=== PATIENT | male | born 1955 | race Caucasian/White ===

== ENCOUNTER 2019-01-21 11:30 | Inpatient (IN) | payer SELFPAY ==
[~2019-01-21] VITALS: Ht 167.6 cm; Wt 75.3 kg
[2019-01-21] MEDS ORDERED: SODIUM CHLORIDE 0.9% 1L BAG IV* STA (12:15)
[2019-01-21] MEDS ORDERED: ACETAMINOPHEN 325 MG TAB PO STA (12:15)
[2019-01-21] MEDS ORDERED: CEFEPIME 2GM/50 ML (PMX) 50 ML IVPB STA (12:15)
[2019-01-21] MEDS ORDERED: VANCOMYCIN 1 GM (PMX) 250 ML IVPB ONE (12:30)
[2019-01-21] MEDS ORDERED: METF100010 PO (13:23)
[2019-01-21] MEDS ORDERED: CLON0.2T5 PO (13:23)
[2019-01-21] MEDS ORDERED: ALBUTEROL 0.083% (NEB) 2.5 MG/3 ML AMP NEB STA (15:08)
[2019-01-21] MEDS ORDERED: IPRATROPIUM (NEB) 0.5 MG/2.5 ML AMP NEB STA (15:08)
--- NOTE | 2019-01-21 15:58 | ERD ---
ER Documentation Chief Complaint Chief Complaint cough with intermittent fever x 1 wk HPI Very pleasant 63-year-old gentleman who presents to the emergency room complaining of cough and fever for approximately 1 week. The patient has been treated with amoxicillin by his primary care physician but over the last 6 days the patient has had worsening cough that is productive with associated shortness of breath. He denies any headache. No chest pressure no exertional symptoms. ROS All systems reviewed and are negative except as per history of present illness. Medications Home Meds Reported Medications Clonidine Hcl* (Clonidine Hcl*) 0.2 Mg Tablet, 0.2 MG PO TID PRN for ELEVATED BLOOD PRESSURE, TAB 01/21/19 Metformin Hcl* (Metformin Hcl*) 1,000 Mg Tablet, 1000 MG PO WITH BREAKFAST DINNE, #60 TAB 01/21/19 Allergies Allergies: Coded Allergies: No Known Allergy (Verified , 01/21/19) PMhx/Soc History of Surgery: No Anesthesia Reaction: No Hx Neurological Disorder: No Hx Respiratory Disorders: No Hx Psychiatric Problems: No Hx Miscellaneous Medical Probl: No (TYPE 2 DM ) Hx Alcohol Use: No Hx Substance Use: No Hx Tobacco Use: No Smoking Status: Never smoker FmHx Family History: No diabetes Physical Exam Vitals Vital Signs Date Temp Pulse Resp B/P (MAP) Pulse Ox O2 O2 Flow FiO2 Time Delivery Rate 01/21/19 74 21 156/89 100 15:25 (111) 01/21/19 62 23 98 Nasal 2.0 15:13 Cannula 01/21/19 101.0 12:47 01/21/19 Nasal 2 12:23 Cannula 01/21/19 Nasal 2.0 12:23 Cannula 01/21/19 99.3 85 18 172/85 96 11:34 (114) Physical Exam General: Well developed, well nourished, no acute distress Head: Normocephalic, atraumatic. Eyes: Pupils equally reactive, EOM intact ENT: Moist mucous membranes Neck: Supple, no lymphadenopathy Respiratory: Scattered rhonchi at the bases, no distress Cardiovascular: RRR, no murmurs, rubs, or gallops Abdominal: Soft, non-tender, non-distended, no peritoneal signs : Deferred MSK: No edema, no unilateral swelling, 5/5 strength Neurologic: Alert and oriented, moving all extremities, normal speech, no focal weakness, no cerebellar signs Skin: No rash Psych: Normal mood Result Diagram: 01/21/19 1221 01/21/19 1221 Results 24 hrs Laboratory Tests Test 01/21/19 12:19 01/21/19 12:21 01/21/19 14:13 01/21/19 15:00 POC Venous 1.1 mmol/L Lactate White Blood Count 16.1 10^3/ul Red Blood Count 5.50 10^6/ul Hemoglobin 14.2 g/dl Hematocrit 44.3 % Mean Corpuscular 80.5 fl Volume Mean Corpuscular 25.8 pg Hemoglobin Mean Corpuscular 32.1 g/dl Hemoglobin Concen t Red Cell 13.1 % Distribution Width Platelet Count 345 10^3/UL Mean Platelet 9.7 fl Volume Immature 0.500 % Granulocytes % Neutrophils % 88.9 % Lymphocytes % 6.3 % Monocytes % 3.4 % Eosinophils % 0.6 % Basophils % 0.3 % Nucleated Red 0.0 /100WBC Blood Cells % Immature 0.080 10^3/ul Granulocytes # Neutrophils # 14.3 10^3/ul Lymphocytes # 1.0 10^3/ul Monocytes # 0.6 10^3/ul Eosinophils # 0.1 10^3/ul Basophils # 0.1 10^3/ul Nucleated Red 0.0 10^3/ul Blood Cells # Prothrombin Time 13.4 Sec Prothrombin Time 1.0 Ratio INR International 1.01 Normalized Ratio Activated 27.9 Sec Partial Thrombopl ast Time Sodium Level 136 mmol/L Potassium Level 4.1 mmol/L Chloride Level 99 mmol/L Carbon Dioxide 29 mmol/L Level Anion Gap 8 Blood Urea 16 mg/dl Nitrogen Creatinine 1.40 mg/dl Est Glomerular 51 mL/min Filtrat Rate mL/min Glucose Level 218 mg/dl Calcium Level 8.9 mg/dl Total Bilirubin 0.6 mg/dl Direct Bilirubin 0.00 mg/dl Indirect 0.6 mg/dl Bilirubin Aspartate Amino 19 IU/L Transf (AST/SGOT) Alanine 22 IU/L Aminotransferase (ALT/SGPT) Alkaline 53 IU/L Phosphatase Troponin I < 0.012 ng/ml Total Protein 6.0 g/dl Albumin 3.2 g/dl Globulin 2.80 g/dl Albumin/Globulin 1.14 Ratio Urine Color YELLOW Urine Clarity CLEAR Urine pH 6.0 Urine Specific 1.017 [place] Urine Ketones NEGATIVE mg/dL Urine Nitrite NEGATIVE mg/dL Urine Bilirubin NEGATIVE mg/dL Urine NEGATIVE mg/dL Urobilinogen Urine Leukocyte NEGATIVE Nurys/ul Esterase Urine Hemoglobin NEGATIVE mg/dL Urine Glucose NEGATIVE mg/dL Urine Total NEGATIVE mg/dl Protein Lactic Acid Level 0.9 mmol/L Current Medications Medications Dose Sig/[place] Start Time Status Last (Trade) Ordered Route PRN Stop Time Admin Dose Reason Admin Sodium 2,150 ml BOLUS OVER 2 01/21/19 DC 01/21/19 Chloride HOURS STAT 12:15 12:46 (NS) IV* 01/21/19 12:16 650 mg ONCE STAT 01/21/19 DC 01/21/19 Acetaminophen PO 12:15 12:47 (Tylenol 01/21/19 12:16 Tab) Cefepime HCl 50 ml @ ONCE STAT 01/21/19 DC 01/21/19 100 mls/hr IVPB 12:15 14:49 01/21/19 12:44 Vancomycin 250 ml @ ONCE ONCE 01/21/19 DC 01/21/19 HCl 125 mls/hr IVPB 12:30 12:46 01/21/19 14:29 Albuterol 2.5 mg ONCE STAT 01/21/19 DC 01/21/19 (Proventil NEB 15:08 15:13 0.083% (Neb)) 01/21/19 15:09 Ipratropium 0.5 mg ONCE STAT 01/21/19 DC 01/21/19 [place] NEB 15:08 15:13 (Atrovent 01/21/19 15:09 0.02% (Neb)) Procedures/MDM EKG, MONITORS, & DIAGNOSTIC IMAGING: EKG: I reviewed and interpreted a 12-lead EKG. Rhythm: Normal sinus rhythm ST Changes: No contiguous ST segment elevations T waves: No contiguous T wave inversions Impression: No evidence of acute cardiac ischemia CXR IMPRESSION: 1. Mild diffuse bilateral interstitial opacities, could represent an atypical infectious or inflammatory process in the acute clinical setting. Recommend short term follow-up radiographic imaging to document complete resolution. LAB INTERPRETATION: I reviewed the laboratory testing and it shows leukocytosis with normal lactic acid MEDICAL DECISION MAKING: Patient presents with cough and congestion despite the use of amoxicillin on an outpatient basis. His clinical exam and history and presentation are likely consistent with community acquired pneumonia. I think issue with the administration of amoxicillin in this patient for treatment of community acquired pneumonia. It does not seem to be appropriate coverage for this patient's age group. Therefore I am not convinced that this is treatment failure but the patient does have borderline oxygen saturation. Patient does have Sirs criteria with concern for pneumonia. Code sepsis initiated. ER COURSE: * Appropriate fluid, blood cultures and antibiotics provided. * Patient was given a breathing treatment * Patient continues to be extremely well-appearing in the emergency room setting however his oxygen saturation on room air remains between 8892%. I am concerned based on this finding that the patient warrants further observation and inpatient basis. He is agreeable. CONSULTATION: None DISPOSITION PLAN: Accepting care team and consultations: I discussed the current laboratory data, diagnostic imaging and emergency care provided. Admitting team: Dr. Adam Admitting team indication: Insurance directed Sepsis Documentation: Patient's infectious symptoms have not stabilized and the patient is at risk of rapid decompensation. The patient will be admitted for careful hydration, antibiotic therapy, and infectious source control. SEVERE SEPSIS CRITERIA: Infectious source: Community-acquired pneumonia End organ damage indicated by: Acute Resp Failure (sat < 92% w/o oxygen) SEPSIS MANAGEMENT Time of recognition of sepsis: Upon MD assessment. Time of recognition of severe sepsis: Approximately 12:23 PM Time of recognition of septic shock: No septic shock at this time. 3 HOUR BUNDLE Blood cultures x 2 before broad-spectrum antibiotics: Yes 30 ml/kg NS bolus completed Initial lactate less than 2 Repeat lactate less than 2 SEPTIC SHOCK ASSESSMENT: No lactic acid > 4.0 No persistent hypotension (SBP < 90 or 40 mmHg drop, MAP < 65) despite 30 mL/kg IV fluid bolus VOLUME REASSESSMENT FOR SEPTIC SHOCK: The patient does not meet criteria for septic shock in the emergency department at this time PERSISTENT HYPOTENSION TREATMENT: Comfort care no Central line not Required Vasopressor started not required I considered further perfusion assessment with CVP measurement, SCVO2, bedside ultrasound volume assessment, passive leg raise, trial of further fluid bolus. And proceeded with 30 ml/kg fluid bolus of NSS, broad spectrum antibiotics, and admission. CRITICAL CARE Critical care time 35 minutes Emergent fluid management while maintaining close respiratory support. Provision of immediate and broad-spectrum antibiotic therapy. Simultaneous assessment for possible sources in order to direct targeted therapy. Consideration for invasive and chemical support to prevent cardiopulmonary collapse. Critical care time is independent of procedures performed. Departure Diagnosis: Primary Impression: Community acquired pneumonia Laterality: unspecified laterality Qualified Codes: J18.9 - Pneumonia, un specified organism Additional Impressions: Severe sepsis Acute renal insufficiency Condition: Stable LARA GRIGSBY MD January 21, 2019 15:57
[2019-01-21] MEDS ORDERED: ACETAMINOPHEN 325 MG TAB PO PRN (16:30)
[2019-01-21] MEDS ORDERED: ONDANSETRON 4 MG INJ IV PRN (16:30)
[2019-01-21] MEDS ORDERED: AZITHROMYCIN 250 MG TAB PO ONE (18:00)
[2019-01-21] MEDS ORDERED: VANCOMYCIN IV PER PHARMACY XX SCH (18:00)
[2019-01-21] MEDS ORDERED: HYDROCODONE/APAP (5/325) TAB PO PRN (18:00)
[2019-01-21] MEDS ORDERED: NACL 0.9% 3 ML SYG IV SCH (18:00)
--- NOTE | 2019-01-21 18:42 | HP ---
Date/Time of Note Date/Time of Note DATE: 01/21/19 TIME: 18:33 Assessment/Plan VTE Prophylaxis Pharmacological prophylaxis: heparin Lines/Catheters IV [facility]from [facility] Saline Lock Assessment/Plan Hospital Course This is a 63-year-old male with a history of diabetes and hypertension with who presents with 6 weeks of resolving pneumonia. Found to have fever mild hypoxia and diffuse interstitial infiltrates Picture is concerning for an atypical pneumonia pattern perhaps a fungal pneumonia. Bacterial lobar pneumonia is less likely but certainly possible -We will treat with broad-spectrum antibiotics for now. Low threshold to stop if no improvement -We will test for coccidial mycosis, legionella, mycoplasma - CT chest pending - O2 as needed - ID consultation DMII: - basal/bolus Hypertension: home meds dc Result Diagram: 01/21/19 1221 01/21/19 1221 Results 24hrs Laboratory Tests Test 01/21/19 12:19 01/21/19 12:21 01/21/19 14:13 01/21/19 15:00 POC Venous Lactate 1.1 White Blood Count 16.1 H Red Blood Count 5.50 Hemoglobin 14.2 Hematocrit 44.3 Mean Corpuscular 80.5 L Volume Mean Corpuscular 25.8 L Hemoglobin Mean Corpuscular 32.1 Hemoglobin Concent Red Cell 13.1 Distribution Width Platelet Count 345 Mean Platelet Volume 9.7 Immature 0.500 H Granulocytes % Neutrophils % 88.9 H Lymphocytes % 6.3 L Monocytes % 3.4 Eosinophils % 0.6 Basophils % 0.3 Nucleated Red Blood 0.0 Cells % Immature 0.080 H Granulocytes # Neutrophils # 14.3 H Lymphocytes # 1.0 Monocytes # 0.6 Eosinophils # 0.1 Basophils # 0.1 Nucleated Red Blood 0.0 Cells # Prothrombin Time 13.4 Prothrombin Time 1.0 Ratio INR International 1.01 Normalized Ratio Activated 27.9 Partial Thromboplast Time Sodium Level 136 Potassium Level 4.1 Chloride Level 99 Carbon Dioxide Level 29 Anion Gap 8 Blood Urea Nitrogen 16 Creatinine 1.40 H Est Glomerular 51 L Filtrat Rate mL/min Glucose Level 218 Calcium Level 8.9 Total Bilirubin 0.6 Direct Bilirubin 0.00 Indirect Bilirubin 0.6 Aspartate Amino 19 Transf (AST/SGOT) Alanine 22 Aminotransferase (AL T/SGPT) Alkaline Phosphatase 53 Troponin I < 0.012 Total Protein 6.0 L Albumin 3.2 L Globulin 2.80 Albumin/Globulin 1.14 Ratio Urine Color YELLOW Urine Clarity CLEAR Urine pH 6.0 Urine Specific 1.017 [place] Urine Ketones NEGATIVE Urine Nitrite NEGATIVE Urine Bilirubin NEGATIVE Urine Urobilinogen NEGATIVE Urine Leukocyte NEGATIVE Esterase Urine Hemoglobin NEGATIVE Urine Glucose NEGATIVE Urine Total Protein NEGATIVE Lactic Acid Level 0.9 HPI/ROS Admit Date/Time Admit Date/Time Hx of Present Illness This is a 63-year-old male with a history of diabetes and hypertension who presents with cough and shortness of breath and fever Patient has had respiratory symptoms for about a month and a half. He has had bothersome dry cough as well as shortness of breath. He has had daily fevers to 101 measured at home. She is primary care doctor has given him a course of amoxicillin which has not helped he also gave him an intramuscular injection which sounds like it was Rocephin. Also this did not improve his symptoms. His fevers and shortness of breath symptoms have worsened over the past few days so he sought care in the emergency room here today. He also reports frequent night sweats. No weight loss here found to be febrile mildly hypoxic with diffuse interstitial infiltrates on chest x-ray He appears well and comfortable rest He denies any major recent travel. He last left the [place] area about a year ago. 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 His was sick briefly with an upper respiratory infection a month ago but nothing similar to what he has now. No other sick contacts ROS Constitutional: no complaints, improved Eyes: no complaints ENT: no complaints Respiratory: no complaints Cardiovascular: no complaints Gastrointestinal: no complaints Genitourinary: no complaints Musculoskeletal: no complaints Skin: no complaints Neurologic: no complaints Endocrine: no complaints Lymphatic: no complaints Psychological: no complaints, nl mood/affect Immunologic: no complaints PMH/Family/Social Past Medical History Medical History: diabetes, hypertension Medications Current Medications Ondansetron HCl (Zofran Inj) 4 mg BRIDGE ORDER PRN IV NAUSEA/VOMITING; Start 01/21/19 at 16:30; Stop 01/22/19 at 16:29 Acetaminophen (Tylenol Tab) 650 mg ER BRIDGE PRN PO .MILD PAIN 1-3 OR TEMP; Start 01/21/19 at 16:30; Stop 01/22/19 at 16:29 IV Flush (NS 3 ml) 3 ml PER PROTOCOL IV ; Start 01/21/19 at 18:00 Acetaminophen/ Hydrocodone Bitart ([place] (5/325)) 1 tab Q6H PRN PO .MOD PAIN 4- 6; Start 01/21/19 at 18:00 Heparin Sodium (Porcine) (Heparin (5000 Units/1ml)) 5,000 unit Q12 SC ; Start 01/21/19 at 21:00 Vancomycin HCl (Vanco Iv Per Pharmacy) VANCOMYCIN PER PHARMACY PER PROTOCOL XX ; Start 01/21/19 at 18:00; Status UNV Cefepime HCl 50 ml @ 100 mls/hr Q12 IVPB ; Start 01/21/19 at 21:00 Azithromycin (Zithromax) 250 mg DAILY PO ; Start 01/22/19 at 09:00 Coded Allergies: No Known Allergy (Verified , 01/21/19) Past Surgical History Past Surgical Hx: no surgical history Family History Significant Family History: no pertinent family hx Social History Alcohol Use: none Smoking Status: Never smoker Drug Use: none Exam/Review of Systems Vital Signs Vitals Vital Signs Date Temp Pulse Resp B/P (MAP) Pulse Ox O2 O2 Flow FiO2 Time Delivery Rate 01/21/19 74 21 156/89 100 15:25 (111) 01/21/19 Nasal 2.0 15:13 Cannula 01/21/19 101.0 12:47 Exam Constitutional: alert, oriented, well developed Psych: no complaints, nl mood/affect Head: normocephalic, atraumatic Eyes: nl conjunctiva, EOMI, nl lids, nl sclera, PERRL ENMT: nl external ears & nose, nl lips & teeth, nl nasal mucosa & septum Neck: supple, non-tender Respiratory: clear to auscultation, normal air movement Cardiovascular: regular rate and rhythm, nl pulses Gastrointestinal: soft, nl liver, spleen, non-tender Musculoskeletal: nl extremities to inspection Extremities: normal pulses Neurological: SCREEN CLEANER II-XII intact, nl mental status, nl speech, nl strength Skin: nl turgor; No rash or lesions Lymph: nl lymph nodes GLADYS LUNA MD January 21, 2019 18:42
[2019-01-21] MEDS ORDERED: DEXTROSE 50% 50 ML SYRINGE IV PRN ×2 (20:30)
[2019-01-21] MEDS ORDERED: GLUCOSE GEL 15 GRAM TUBE PO PRN ×2 (20:30)
[2019-01-21] MEDS ORDERED: GLUCOSE GEL 15 GRAM TUBE BUCCAL PRN (20:30)
[2019-01-21] MEDS ORDERED: GLUCAGON 1 MG INJ IM PRN (20:30)
[2019-01-21 20:32] VITALS: BP 160/89; PULSE 68; RESP 16
[2019-01-21 20:51] VITALS: Ht 167.6 cm; Wt 75.3 kg
[2019-01-21] MEDS: ACCU-CHEK XX SCH (20:58)
[2019-01-21] MEDS: INSULIN ASPART [NOVOLOG] 3 ML PEN SC SCH (21:00)
[2019-01-21 22:00] VITALS: BP 155/71
[2019-01-21] MEDS: CEFEPIME 1GM/50 ML (PMX) 50 ML IVPB SCH (22:21)
[2019-01-21] MEDS: HEPARIN 5,000 UNIT/1 ML VIAL SC SCH (22:31)
[2019-01-21] MEDS: INSULIN GLARGINE [LANTus] (100 UNITS/ML) SYG SC SCH (22:51)
[2019-01-22 02:28] VITALS: BP 177/99; PULSE 80; RESP 16
[2019-01-22 06:03] VITALS: BP 171/100
[2019-01-22] MEDS: hydrALAzine 20 MG INJ IV PRN (06:21)
[2019-01-22 07:15] VITALS: BP 159/84; PULSE 85; RESP 20
[2019-01-22] MEDS: ACCU-CHEK XX SCH ×4 (07:30→21:00)
[2019-01-22] MEDS ORDERED: metFORMIN 500 MG TAB PO SCH (08:00)
[2019-01-22] MEDS: INSULIN ASPART [NOVOLOG] 3 ML PEN SC SCH ×7 (08:33→21:10)
[2019-01-22] MEDS: CEFEPIME 1GM/50 ML (PMX) 50 ML IVPB SCH ×2 (08:36→21:03)
[2019-01-22] MEDS: HEPARIN 5,000 UNIT/1 ML VIAL SC SCH ×2 (08:38→21:09)
[2019-01-22] MEDS ORDERED: AZITHROMYCIN 250 MG TAB PO SCH (09:00)
[2019-01-22] MEDS ORDERED: VANCOMYCIN HCL 1.25 GM in SOD CHLORIDE 0.9% 250 ML IVPB SCH (09:00)
--- NOTE | 2019-01-22 09:36 | CONS ---
Assessment/Plan Assessment/Plan Hospital Course (Demo Recall) 1) alveolar/interstitial pneumonitis CT chest does not show nodules or cavities, this is not a typical pattern for [place] fever continue with cefepime, change vanco/azithro to doxycycline to cover MRSA and atypicals procalcitonin is pending, repeat in a.m. check ESR, AMBREEN, ANCA get viral respiratory panel of nares get nasal for MRSA check quant TB gold in a.m. if pt does not improve in the next few days and lab tests are not revelatory then he will likely need bronch with lung bx 2) DM pt states these have been good and his HgbA1C is around 6 3) HTN Consultation Date/Type/Reason Admit Date/Time Date of Consultation: January 22, 2019 Type of Consult ID Date/Time of Note DATE: 01/22/19 TIME: 09:28 Hx of Present Illness pt reports that he has been unwell for 4-6 weeks with cough, non productive and initially low grade fevers he initially had sore throat and muscle aches/joint pains which have resolved in the last week the fevers got worse and went to urgent care and got amoxicillin which did not help no N, V his appetite has decreased in the last week he was [place] and it was windy He has had diarrhea but he states he tends to have loose stools no abd pain, dysuria, rashes He had some CP with coughing but this has improved no joint swelling his has similar but milder symptoms Past Medical History Medical History: diabetes, hypertension Home Meds Reported Medications Clonidine Hcl* (Clonidine Hcl*) 0.2 Mg Tablet, 0.2 MG PO TID PRN for ELEVATED BLOOD PRESSURE, TAB 01/21/19 Discontinued Reported Medications Metformin Hcl* (Metformin Hcl*) 1,000 Mg Tablet, 1000 MG PO WITH BREAKFAST DINNE, #60 TAB 01/21/19 Medications Current Medications Ondansetron HCl (Zofran Inj) 4 mg BRIDGE ORDER PRN IV NAUSEA/VOMITING; Start 01/21/19 at 16:30; Stop 01/22/19 at 16:29 Acetaminophen (Tylenol Tab) 650 mg ER BRIDGE PRN PO .MILD PAIN 1-3 OR TEMP; Start 01/21/19 at 16:30; Stop 01/22/19 at 16:29 IV Flush (NS 3 ml) 3 ml PER PROTOCOL IV ; Start 01/21/19 at 18:00 Acetaminophen/ Hydrocodone Bitart ([place] (5/325)) 1 tab Q6H PRN PO .MOD PAIN 4- 6; Start 01/21/19 at 18:00 Heparin Sodium (Porcine) (Heparin (5000 Units/1ml)) 5,000 unit Q12 SC Last administered on 01/22/19 08:38; Admin Dose 5,000 UNIT; Start 01/21/19 at 21:00 Vancomycin HCl (Vanco Iv Per Pharmacy) VANCOMYCIN PER PHARMACY PER PROTOCOL XX ; Start 01/21/19 at 18:00 Cefepime HCl 50 ml @ 100 mls/hr Q12 IVPB Last administered on 01/22/19 08:36; Admin Dose 100 MLS/HR; Start 01/21/19 at 21:00 Azithromycin (Zithromax) 250 mg DAILY PO ; Start 01/22/19 at 09:00 Clonidine (Catapres) 0.2 mg TID PRN PO SBP ABOVE 180..... Last administered on 01/22/19at 02:08; Admin Dose 0.2 MG; Start 01/21/19 at 19:30 Diagnostic Test (Pha) (Accu-Chek) 1 ea AC MEALS AND BEDTIME XX Last administered on 01/22/19 07:30; Admin Dose 1 EA; Start 01/21/19 at 21:00 Insulin Glargine (Lantus) 11 units DAILY@2000 SC Last administered on 01/21/19 22:51; Admin Dose 11 UNITS; Start 01/21/19 at 20:00 Insulin Aspart (Novolog Insulin Pen) 4 unit WITH MEALS SC Last administered on 01/22/19 08:33; Admin Dose 4 UNIT; Start 01/22/19 at 07:35 Insulin Aspart (Novolog Insulin Pen) NOVOLOG *MILD* ALGORITHM WITH MEALS BEDTIME SC Last administered on 01/22/19 08:35; Admin Dose 1 UNIT; Start 01/21/19 at 21:00 Miscellaneous Information 1 ea NOTE XX ; Start 01/21/19 at 20:30 Glucose (Glutose) 15 gm Q15M PRN PO DECREASED GLUCOSE; Start 01/21/19 at 20:30 Glucose (Glutose) 22.5 gm Q15M PRN PO DECREASED GLUCOSE; Start 01/21/19 at 20:30 Dextrose (D50w Syringe) 25 ml Q15M PRN IV DECREASED GLUCOSE; Start 01/21/19 at 20:30 Dextrose (D50w Syringe) 50 ml Q15M PRN IV DECREASED GLUCOSE; Start 01/21/19 at 20:30 Glucagon (Glucagen) 1 mg Q15M PRN IM DECREASED GLUCOSE; Start 01/21/19 at 20:30 Glucose (Glutose) 15 gm Q15M PRN BUCCAL DECREASED GLUCOSE; Start 01/21/19 at 20:30 Vancomycin HCl 1.25 gm/Sodium Chloride 250 ml @ 83.333 mls/ hr Q24H IVPB ; Start 01/22/19 at 09:00 Hydralazine HCl (Apresoline) 10 mg Q4H PRN IV ELEVATED BLOOD PRESSURE Last administered on 01/22/19at 06:21; Admin Dose 10 MG; Start 01/22/19 at 06:30 Allergies: Coded Allergies: No Known Allergy (Verified , 01/21/19) Past Surgical History hernia repairs Social History Alcohol Use: none Smoking Status: Never smoker Drug Use: none Exam/Review of Systems Exam Vitals Vital Signs Date Temp Pulse Resp B/P (MAP) Pulse Ox O2 O2 Flow FiO2 Time Delivery Rate 01/22/19 98.4 85 20 159/84 93 Nasal 07:15 (109) Cannula 01/21/19 2.0 21:00 Intake and Output 01/21/19 01/21/19 01/22/19 1515:00 23:00 07:00 IntakeIntake Total 2550 ml BalanceBalance 2550 ml Constitutional: alert, oriented Eyes: nl sclera ENMT: mucosa pink and moist Respiratory: other (bibasilar rales and pt coughs easily, non productive) Cardiovascular: regular rate and rhythm Gastrointestinal: soft, non-tender Extremities: other (no swelling or rashes noted) Neurological: other (non focal) Results Result Diagram: 01/22/19 0705 01/21/19 1221 Results 24hrs Laboratory Tests Test 01/21/19 12:19 01/21/19 12:21 01/21/19 14:13 01/21/19 15:00 POC Venous Lactate 1.1 White Blood Count 16.1 H Red Blood Count 5.50 Hemoglobin 14.2 Hematocrit 44.3 Mean Corpuscular 80.5 L Volume Mean Corpuscular 25.8 L Hemoglobin Mean Corpuscular 32.1 Hemoglobin Concent Red Cell 13.1 Distribution Width Platelet Count 345 Mean Platelet Volume 9.7 Immature 0.500 H Granulocytes % Neutrophils % 88.9 H Lymphocytes % 6.3 L Monocytes % 3.4 Eosinophils % 0.6 Basophils % 0.3 Nucleated Red Blood 0.0 Cells % Immature 0.080 H Granulocytes # Neutrophils # 14.3 H Lymphocytes # 1.0 Monocytes # 0.6 Eosinophils # 0.1 Basophils # 0.1 Nucleated Red Blood 0.0 Cells # Prothrombin Time 13.4 Prothrombin Time 1.0 Ratio INR International 1.01 Normalized Ratio Activated 27.9 Partial Thromboplast Time Sodium Level 136 Potassium Level 4.1 Chloride Level 99 Carbon Dioxide Level 29 Anion Gap 8 Blood Urea Nitrogen 16 Creatinine 1.40 H Est Glomerular 51 L Filtrat Rate mL/min Glucose Level 218 Calcium Level 8.9 Total Bilirubin 0.6 Direct Bilirubin 0.00 Indirect Bilirubin 0.6 Aspartate Amino 19 Transf (AST/SGOT) Alanine 22 Aminotransferase (AL T/SGPT) Alkaline Phosphatase 53 Troponin I < 0.012 Total Protein 6.0 L Albumin 3.2 L Globulin 2.80 Albumin/Globulin 1.14 Ratio Urine Color YELLOW Urine Clarity CLEAR Urine pH 6.0 Urine Specific 1.017 [place] Urine Ketones NEGATIVE Urine Nitrite NEGATIVE Urine Bilirubin NEGATIVE Urine Urobilinogen NEGATIVE Urine Leukocyte NEGATIVE Esterase Urine Hemoglobin NEGATIVE Urine Glucose NEGATIVE Urine Total Protein NEGATIVE Lactic Acid Level 0.9 Test 01/21/19 22:44 01/22/19 07:05 01/22/19 08:06 Bedside Glucose 128 143 White Blood Count 11.3 #H Red Blood Count 5.61 Hemoglobin 14.5 Hematocrit 45.4 Mean Corpuscular 80.9 L Volume Mean Corpuscular 25.8 L Hemoglobin Mean Corpuscular 31.9 L Hemoglobin Concent Red Cell 13.2 Distribution Width Platelet Count 341 Mean Platelet Volume 9.8 Immature 0.600 H Granulocytes % Neutrophils % 83.7 H Lymphocytes % 9.7 L Monocytes % 4.6 Eosinophils % 1.0 Basophils % 0.4 Nucleated Red Blood 0.0 Cells % Immature 0.070 H Granulocytes # Neutrophils # 9.5 H Lymphocytes # 1.1 Monocytes # 0.5 Eosinophils # 0.1 Basophils # 0.0 Nucleated Red Blood 0.0 Cells # Sodium Level 139 Potassium Level 4.0 Chloride Level 105 Carbon Dioxide Level 24 Anion Gap 10 Blood Urea Nitrogen 14 Creatinine 1.26 H Est Glomerular 58 L Filtrat Rate mL/min Glucose Level 141 # Hemoglobin A1c 7.6 H Calcium Level 8.7 Total Bilirubin 0.7 Direct Bilirubin 0.00 Indirect Bilirubin 0.7 Aspartate Amino 20 Transf (AST/SGOT) Alanine 23 Aminotransferase (AL T/SGPT) Alkaline Phosphatase 58 Total Protein 6.3 Albumin 3.3 Globulin 3.00 Albumin/Globulin 1.10 Ratio Medications Medication Current Medications Ondansetron HCl (Zofran Inj) 4 mg BRIDGE ORDER PRN IV NAUSEA/VOMITING; Start 01/21/19 at 16:30; Stop 01/22/19 at 16:29 Acetaminophen (Tylenol Tab) 650 mg ER BRIDGE PRN PO .MILD PAIN 1-3 OR TEMP; Start 01/21/19 at 16:30; Stop 01/22/19 at 16:29 IV Flush (NS 3 ml) 3 ml PER PROTOCOL IV ; Start 01/21/19 at 18:00 Acetaminophen/ Hydrocodone Bitart ([place] (5/325)) 1 tab Q6H PRN PO .MOD PAIN 4- 6; Start 01/21/19 at 18:00 Heparin Sodium (Porcine) (Heparin (5000 Units/1ml)) 5,000 unit Q12 SC Last administered on 01/22/19at 08:38; Admin Dose 5,000 UNIT; Start 01/21/19 at 21:00 Vancomycin HCl (Vanco Iv Per Pharmacy) VANCOMYCIN PER PHARMACY PER PROTOCOL XX ; Start 01/21/19 at 18:00 Cefepime HCl 50 ml @ 100 mls/hr Q12 IVPB Last administered on 01/22/19at 08:36; Admin Dose 100 MLS/HR; Start 01/21/19 at 21:00 Azithromycin (Zithromax) 250 mg DAILY PO ; Start 01/22/19 at 09:00 Clonidine (Catapres) 0.2 mg TID PRN PO SBP ABOVE 180..... Last administered on 01/22/19at 02:08; Admin Dose 0.2 MG; Start 01/21/19 at 19:30 Diagnostic Test (Pha) (Accu-Chek) 1 ea AC MEALS AND BEDTIME XX Last administered on 01/22/19at 07:30; Admin Dose 1 EA; Start 01/21/19 at 21:00 Insulin Glargine (Lantus) 11 units DAILY@2000 SC Last administered on 01/21/19at 22:51; Admin Dose 11 UNITS; Start 01/21/19 at 20:00 Insulin Aspart (Novolog Insulin Pen) 4 unit WITH MEALS SC Last administered on 01/22/19at 08:33; Admin Dose 4 UNIT; Start 01/22/19 at 07:35 Insulin Aspart (Novolog Insulin Pen) NOVOLOG *MILD* ALGORITHM WITH MEALS BEDTIME SC Last administered on 01/22/19at 08:35; Admin Dose 1 UNIT; Start 01/21/19 at 21:00 Miscellaneous Information 1 ea NOTE XX ; Start 01/21/19 at 20:30 Glucose (Glutose) 15 gm Q15M PRN PO DECREASED GLUCOSE; Start 01/21/19 at 20:30 Glucose (Glutose) 22.5 gm Q15M PRN PO DECREASED GLUCOSE; Start 01/21/19 at 20:30 Dextrose (D50w Syringe) 25 ml Q15M PRN IV DECREASED GLUCOSE; Start 01/21/19 at 20:30 Dextrose (D50w Syringe) 50 ml Q15M PRN IV DECREASED GLUCOSE; Start 01/21/19 at 20:30 Glucagon (Glucagen) 1 mg Q15M PRN IM DECREASED GLUCOSE; Start 01/21/19 at 20:30 Glucose (Glutose) 15 gm Q15M PRN BUCCAL DECREASED GLUCOSE; Start 01/21/19 at 20:30 Vancomycin HCl 1.25 gm/Sodium Chloride 250 ml @ 83.333 mls/ hr Q24H IVPB ; Start 01/22/19 at 09:00 Hydralazine HCl (Apresoline) 10 mg Q4H PRN IV ELEVATED BLOOD PRESSURE Last administered on 01/22/19at 06:21; Admin Dose 10 MG; Start 01/22/19 at 06:30 FRANCISCO NYE MD January 22, 2019 09:36
[2019-01-22] MEDS: FUROSEMIDE 40 MG INJ IV SCH (13:52)
--- NOTE | 2019-01-22 14:03 | PN ---
Date/Time of Note Date/Time of Note DATE: 01/22/19 TIME: 13:59 Assessment/Plan VTE Prophylaxis Risk score (from Nsg)>0 risk: 2 SCD applied (from Nsg): Yes Pharmacological prophylaxis: heparin Lines/Catheters IV Catheter Type (from Nrsg): Saline Lock Assessment/Plan Hospital Course Comfortable appearing Aox3 Breathing comfortable Crackles on inspiration, good air entry Flat neck veins RRR This is a 63-year-old male with a history of diabetes and hypertension with who presents with 6 weeks of resolving pneumonia. Found to have fever mild hypoxia and diffuse interstitial infiltrates. Picture is concerning for an atypical pneumonia pattern perhaps a fungal pneumonia. Bacterial pneumonia is less likel y but certainly possible - Seems to have improved a bit so will continue broad-spectrum antibiotics for now: doxy/cefepime per Dr Trujillo - Await ANCA, AMBREEN, anti GBM,coccidial mycosis, legionella, mycoplasma - CT chest shows possible CHF with effusion -> diagnostic thoracentesis and lasix daily - O2 as needed DMII: - basal/bolus Hypertension: - home clonidine Result Diagram: 01/22/1970401/22/19 0705 Results 24hrs Laboratory Tests Test 01/21/19 14:13 01/21/19 15:00 01/21/19 22:44 01/22/19 07:04 Urine Color YELLOW Urine Clarity CLEAR Urine pH 6.0 Urine Specific 1.017 [place] Urine Ketones NEGATIVE Urine Nitrite NEGATIVE Urine Bilirubin NEGATIVE Urine Urobilinogen NEGATIVE Urine Leukocyte NEGATIVE Esterase Urine Hemoglobin NEGATIVE Urine Glucose NEGATIVE Urine Total Protein NEGATIVE Lactic Acid Level 0.9 Bedside Glucose 128 Procalcitonin 0.14 H Test 01/22/19 07:05 01/22/19 08:06 01/22/19 12:16 White Blood Count 11.3 #H Red Blood Count 5.61 Hemoglobin 14.5 Hematocrit 45.4 Mean Corpuscular 80.9 L Volume Mean Corpuscular 25.8 L Hemoglobin Mean Corpuscular 31.9 L Hemoglobin Concent Red Cell 13.2 Distribution Width Platelet Count 341 Mean Platelet Volume 9.8 Immature 0.600 H Granulocytes % Neutrophils % 83.7 H Lymphocytes % 9.7 L Monocytes % 4.6 Eosinophils % 1.0 Basophils % 0.4 Nucleated Red Blood 0.0 Cells % Immature 0.070 H Granulocytes # Neutrophils # 9.5 H Lymphocytes # 1.1 Monocytes # 0.5 Eosinophils # 0.1 Basophils # 0.0 Nucleated Red Blood 0.0 Cells # Sodium Level 139 Potassium Level 4.0 Chloride Level 105 Carbon Dioxide Level 24 Anion Gap 10 Blood Urea Nitrogen 14 Creatinine 1.26 H Est Glomerular 58 L Filtrat Rate mL/min Glucose Level 141 # Hemoglobin A1c 7.6 H Calcium Level 8.7 Total Bilirubin 0.7 Direct Bilirubin 0.00 Indirect Bilirubin 0.7 Aspartate Amino 20 Transf (AST/SGOT) Alanine 23 Aminotransferase (AL T/SGPT) Alkaline Phosphatase 58 Total Protein 6.3 Albumin 3.3 Globulin 3.00 Albumin/Globulin 1.10 Ratio HIV (1&2) Antibody NEGATIVE Bedside Glucose 143 151 Subjective 24 Hr Interval Summary Free Text/Dictation Says he is marginally improved since yesterday Still with cough, SOB CT showing instersitial pattern perhaps CHF Exam/Review of Systems Exam Vitals Vital Signs Date Temp Pulse Resp B/P (MAP) Pulse Ox O2 O2 Flow FiO2 Time Delivery Rate 01/22/19 Nasal 2.0 10:07 Cannula 01/22/19 98.4 85 20 159/84 93 07:15 (109) Intake and Output 01/21/19 01/21/19 01/22/19 1515:00 23:00 07:00 IntakeIntake Total 2550 ml BalanceBalance 2550 ml Results Results 24hrs Laboratory Tests Test 01/21/19 14:13 01/21/19 15:00 01/21/19 22:44 01/22/19 07:04 Urine Color YELLOW Urine Clarity CLEAR Urine pH 6.0 Urine Specific 1.017 [place] Urine Ketones NEGATIVE Urine Nitrite NEGATIVE Urine Bilirubin NEGATIVE Urine Urobilinogen NEGATIVE Urine Leukocyte NEGATIVE Esterase Urine Hemoglobin NEGATIVE Urine Glucose NEGATIVE Urine Total Protein NEGATIVE Lactic Acid Level 0.9 Bedside Glucose 128 Procalcitonin 0.14 H Test 01/22/19 07:05 01/22/19 08:06 01/22/19 12:16 White Blood Count 11.3 #H Red Blood Count 5.61 Hemoglobin 14.5 Hematocrit 45.4 Mean Corpuscular 80.9 L Volume Mean Corpuscular 25.8 L Hemoglobin Mean Corpuscular 31.9 L Hemoglobin Concent Red Cell 13.2 Distribution Width Platelet Count 341 Mean Platelet Volume 9.8 Immature 0.600 H Granulocytes % Neutrophils % 83.7 H Lymphocytes % 9.7 L Monocytes % 4.6 Eosinophils % 1.0 Basophils % 0.4 Nucleated Red Blood 0.0 Cells % Immature 0.070 H Granulocytes # Neutrophils # 9.5 H Lymphocytes # 1.1 Monocytes # 0.5 Eosinophils # 0.1 Basophils # 0.0 Nucleated Red Blood 0.0 Cells # Sodium Level 139 Potassium Level 4.0 Chloride Level 105 Carbon Dioxide Level 24 Anion Gap 10 Blood Urea Nitrogen 14 Creatinine 1.26 H Est Glomerular 58 L Filtrat Rate mL/min Glucose Level 141 # Hemoglobin A1c 7.6 H Calcium Level 8.7 Total Bilirubin 0.7 Direct Bilirubin 0.00 Indirect Bilirubin 0.7 Aspartate Amino 20 Transf (AST/SGOT) Alanine 23 Aminotransferase (AL T/SGPT) Alkaline Phosphatase 58 Total Protein 6.3 Albumin 3.3 Globulin 3.00 Albumin/Globulin 1.10 Ratio HIV (1&2) Antibody NEGATIVE Bedside Glucose 143 151 Medications Medication Current Medications Ondansetron HCl (Zofran Inj) 4 mg BRIDGE ORDER PRN IV NAUSEA/VOMITING; Start at 16:30; Stop 01/22/19 at 16:29 Acetaminophen (Tylenol Tab) 650 mg ER BRIDGE PRN PO .MILD PAIN 1-3 OR TEMP; Start 01/21/19 at 16:30; Stop 01/22/19 at 16:29 IV Flush (NS 3 ml) 3 ml PER PROTOCOL IV ; Start 01/21/19 at 18:00 Acetaminophen/ Hydrocodone Bitart ([place] (5/325)) 1 tab Q6H PRN PO .MOD PAIN 4- 6; Start 01/21/19 at 18:00 Heparin Sodium (Porcine) (Heparin (5000 Units/1ml)) 5,000 unit Q12 SC Last administered on 01/22/19at 08:38; Admin Dose 5,000 UNIT; Start 01/21/19 at 21:00 Cefepime HCl 50 ml @ 100 mls/hr Q12 IVPB Last administered on 01/22/19at 08:36; Admin Dose 100 MLS/HR; Start 01/21/19 at 21:00 Clonidine (Catapres) 0.2 mg TID PRN PO SBP ABOVE 180..... Last administered on 01/22/19at 02:08; Admin Dose 0.2 MG; Start 01/21/19 at 19:30 Diagnostic Test (Pha) (Accu-Chek) 1 ea AC MEALS AND BEDTIME XX Last administered on 01/22/19at 11:30; Admin Dose 1 EA; Start 01/21/19 at 21:00 Insulin Glargine (Lantus) 11 units DAILY@2000 SC Last administered on 01/21/19at 22:51; Admin Dose 11 UNITS; Start 01/21/19 at 20:00 Insulin Aspart (Novolog Insulin Pen) 4 unit WITH MEALS SC Last administered on 01/22/19at 12:30; Admin Dose 4 UNIT; Start 01/22/19 at 07:35 Insulin Aspart (Novolog Insulin Pen) NOVOLOG *MILD* ALGORITHM WITH MEALS BEDTIME SC Last administered on 01/22/19 12:31; Admin Dose 1 UNIT; Start 01/21/19 at 21:00 Miscellaneous Information 1 ea NOTE XX ; Start 01/21/19 at 20:30 Glucose (Glutose) 15 gm Q15M PRN PO DECREASED GLUCOSE; Start 01/21/19 at 20:30 Glucose (Glutose) 22.5 gm Q15M PRN PO DECREASED GLUCOSE; Start 01/21/19 at 20:30 Dextrose (D50w Syringe) 25 ml Q15M PRN IV DECREASED GLUCOSE; Start 01/21/19 at 20:30 Dextrose (D50w Syringe) 50 ml Q15M PRN IV DECREASED GLUCOSE; Start 01/21/19 at 20:30 Glucagon (Glucagen) 1 mg Q15M PRN IM DECREASED GLUCOSE; Start 01/21/19 at 20:30 Glucose (Glutose) 15 gm Q15M PRN BUCCAL DECREASED GLUCOSE; Start 01/21/19 at 20:30 Hydralazine HCl (Apresoline) 10 mg Q4H PRN IV ELEVATED BLOOD PRESSURE Last administered on 01/22/19at 06:21; Admin Dose 10 MG; Start 01/22/19 at 06:30 Doxycycline Hyclate (Vibramycin) 100 mg BID PO ; Start 01/22/19 at 21:00 Furosemide (Lasix) 40 mg DAILY IV Last administered on 01/22/19at 13:52; Admin Dose 40 MG; Start 01/22/19 at 12:00 GLADYS LUNA MD January 22, 2019 14:03
[2019-01-22 14:05] VITALS: BP 171/89; PULSE 85; RESP 18
--- NOTE | 2019-01-22 15:09 | CONS ---
DATE OF ADMISSION: 01/21/2019 DATE OF CONSULTATION: TYPE OF CONSULTATION: Pulmonary. REASON FOR CONSULT: Shortness of breath, abnormal chest CT. HISTORY OF PRESENT ILLNESS: This is a 63-year-old gentleman who states he had an upper respiratory t ract infection possibly month ago then proceeded down to his chest, since that time has had worsening cough, shortness of breath, low grade fevers. No hemoptysis or hematemesis. He has failed outpatie nt amoxicillin. The patient states he is a nonsmoker. No history of inhalational lung injury. No p ets. No recent travel history. CT on admission was performed which demonstrated pulmonary edema, po ssible diffuse infiltrates, questionable micronodular appearance. It does appear to be consistent wi th either hypersensitivity, pneumonitis or atypical pneumonia. PAST MEDICAL HISTORY: As above. MEDICATIONS: Per chart. ALLERGIES: NONE. SOCIAL HISTORY: Nonsmoker, no alcohol, no history of drug use. FAMILY HISTORY: Noncontributory. SYSTEMS REVIEW: A 12-point review of systems was negative other than that mentioned above. PHYSICAL EXAMINATION: GENERAL: Well-nourished, well-developed gentleman, appears comfortable at rest, in no acute distress . VITAL SIGNS: Currently afebrile, pulse is 80, blood pressure 159/84, O2 saturation 93% on 2 liters. NECK: Supple. No JVD or lymphadenopathy. CARDIAC: S1, S2. No added sounds or murmurs. CHEST: Diffuse bilateral expiratory wheezing. ABDOMEN: Soft, nontender. No guarding or rebound. EXTREMITIES: No cyanosis, clubbing, edema. NEUROLOGIC: Grossly intact. No focal deficits. LABORATORY DATA: White count initially 16.1, now 11.3, hemoglobin 14.5, platelets of 341. Chemistry : BUN 14, creatinine 1.26. Procalcitonin is mildly elevated at 0.14. DIAGNOSTIC DATA: Chest CT demonstrated small to moderate right pleural effusion, evidence of congest gopal cardiac failure. IMPRESSION: 1. Possible atypical versus healthcare-associated versus community-acquired pneumonia. 2. Questionable hypersensitivity pneumonitis versus vasculitis. 3. Evidence of congestive cardiac failure with right pleural effusion. The patient will require: 1. Continue antibiotics. 2. Supplemental O2. 3. Diuresis. 4. Right thoracentesis with pleural fluid studies. 5. Echocardiogram to evaluate LV function. 6. DVT and GI prophylaxis. Dictated By: ELADIO JEAN MD SV/NTS Conf#: [id number] DID#: [id number] CC: GLADYS LUNA MD;*EndCC*
[2019-01-22 16:30] VITALS: BP 165/90; PULSE 78
--- NOTE | 2019-01-22 17:29 | RADRPT ---
Echocardiogram Report Patient Name: MONTEZ SYEDPatient ID: [id number] : 1955 (63y 8m)Study Date: 01/22/2019 9:30:35 AM Gender: MAccession #: [id number] Tech: Anurag [facility] Location: 2261-A Ref.Physician: GLADYS LUNA Height(Cm): BSA: Weight(Kg): Quality: AdequateOrder Physician: GLADYS LUNA Account #: Procedures: Echocardiographic Report: Transthoracic echocardiogram with complete 2D, M-Mode, and doppler examination. Indications: Congestive Heart Failure. Measurements: 2D/M Mode Doppler Measurement Value Normal Range Measurement Value Normal Range LVIDd 2D 4.8 [ 4.2 - 5.8 ] cm AV Peak Khoa 1.5 [ 100.0 - 170.0 ] cm/sec LVIDs 2D 3.9 [ 2.5 - 4.0 ] cm AV Peak PG 8.0 [ 2.0 - 9.0 ] mmHg LVPWd 2D 1.1 [ 0.6 - 1.0 ] cm LVOT Peak Khoa 1.2 [ 70.0 - 110.0 ] cm/sec IVSd 2D 1.4 [ 0.6 - 1.0 ] cm LVOT Peak PG 6.0 [ 2.0 - 6.0 ] mmHg AoR Diam 2D 3.3 [ 2.6 - 3.4 ] cm MV E Peak Khoa 0.7 [ 60.0 - 130.0 ] cm/sec EDV 2D 109.0 [ 62.0 - 150.0 ] ml MV A Peak Khoa 1.0 [ 100.0 - 120.0 ] cm/sec ESV 2D 66.7 [ 21.0 - 61.0 ] ml MV E/A 0.7 [ 0.8 - 1.5 ] ratio EF 2D 38.8 [ 52.0 - 72.0 ] percent MV Decel Time 134 [ 104 - 258 ] msec LA Dimen 2D 3.9 [ 3.0 - 4.0 ] cm Lat E` Khoa 0.1 [ 10.0 - 15.0 ] cm/sec Lateral E/E` 7.0 [ 1.0 - 2.0 ] ratio MV E/A 0.7 [ 0.8 - 1.5 ] ratio RA Pressure 3.0 mmHg Findings: Left Ventricle: Normal left ventricular systolic function. Normal left ventricular cavity size. Sigmoid septum. Ejection fraction is visually estimated at 55 %. Tissue Doppler/Mitral Doppler indices are consistent with impaired relaxation (Stage I diastolic dysfunction). Right Ventricle: Normal right ventricular size. Normal right ventricular systolic function. Left Atrium: The left atrium is normal in size. Right Atrium: The right atrium is normal in size. Mitral Valve: Mild mitral leaflet calcification. Mild mitral annular calcification. Trace mitral regurgitation. Aortic Valve: Normal appearance of the aortic valve. Aortic sclerosis without significant stenosis. Tricuspid Valve: Normal appearance and function of the tricuspid valve with trace physiologic regurgitation. Pericardium: Normal pericardium with no significant pericardial effusion. Aorta: Normal aortic root. IVC: Normal size and normal respiratory collapse consistent with normal right atrial pressure. Conclusions: Normal left ventricular systolic function. Normal left ventricular cavity size. Sigmoid septum. Ejection fraction is visually estimated at 55 %. Tissue Doppler/Mitral Doppler indices are consistent with impaired relaxation (Stage I diastolic dysfunction). Normal right ventricular size. Normal right ventricular systolic function. The left atrium is normal in size. The right atrium is normal in size. No significant valvular stenosis or regurgitation seen. Normal pericardium with no significant pericardial effusion. Electronically Signed By: Siva Zhu 2019-01-22 17:28:06 PDT
[2019-01-22] MEDS: INSULIN GLARGINE [LANTus] (100 UNITS/ML) SYG SC SCH (19:58)
[2019-01-22 20:10] VITALS: BP 157/83; PULSE 85; RESP 20
[2019-01-22] MEDS: DOXYCYCLINE 100 MG TAB PO SCH (21:04)
[2019-01-23 02:10] VITALS: BP 172/85; PULSE 74; RESP 20
[2019-01-23] MEDS: hydrALAzine 20 MG INJ IV PRN ×2 (02:38→17:21)
[2019-01-23 03:49] VITALS: BP 139/67; PULSE 86; RESP 18
[2019-01-23] MEDS: ACCU-CHEK XX SCH ×4 (07:50→21:00)
[2019-01-23] MEDS: INSULIN ASPART [NOVOLOG] 3 ML PEN SC SCH ×7 (08:00→21:00)
--- NOTE | 2019-01-23 08:33 | CONS ---
Assessment/Plan Assessment/Plan Hospital Course (Demo Recall) 1) alveolar/interstitial pneumonitis CT chest does not show nodules or cavities, this is not a typical pattern for [place] fever continue with cefepime, change vanco/azithro to doxycycline to cover MRSA and atypicals procalcitonin is pending, repeat in a.m. check ESR, AMBREEN, ANCA get viral respiratory panel of nares get nasal for MRSA check quant TB gold in a.m. if pt does not improve in the next few days and lab tests are not revelatory then he will likely need bronch with lung bx 01/23 - initial procalcitonin was neg, repeat is pending pt has pericardial/pleural effusions in combo with his interstitial pneumonitis is indeed concerning for an auto-immune process ESR, AMBREEN, ANCA, anti-gbm are pending continue with doxy/cefepime at present 2) DM pt states these have been good and his HgbA1C is around 6 3) HTN Consultation Date/Type/Reason Admit Date/Time January 21, 2019 at 16:24 Initial Consult Date 01/22/19 Type of Consult ID Date/Time of Note DATE: 01/23/19 TIME: 08:29 24 HR Interval Summary Free Text/Dictation pt states his breathing is better, he received lasix with good output no N, V no D Exam/Review of Systems Exam Vitals Vital Signs Date Temp Pulse Resp B/P (MAP) Pulse Ox O2 O2 Flow FiO2 Time Delivery Rate 01/23/19 98.0 86 18 139/67 94 03:49 (91) 01/22/19 Nasal 2.0 20:00 Cannula Intake and Output 01/22/19 01/22/19 01/23/19 1515:00 23:00 07:00 IntakeIntake Total 240 ml 350 ml 1000 ml OutputOutput Total 250 ml 1500 ml 225 ml BalanceBalance -10 ml -1150 ml 775 ml Constitutional: alert, oriented Eyes: nl sclera Respiratory: other (L base rales) Cardiovascular: regular rate and rhythm Gastrointestinal: soft, non-tender Results Result Diagram: 01/23/19 0602 01/22/19 0705 Results 24hrs Laboratory Tests Test 01/22/19 12:16 01/22/19 17:18 01/22/19 19:56 01/22/19 21:03 Bedside Glucose 151 113 237 H 215 Test 01/23/19 06:02 White Blood Count 16.3 #H Red Blood Count 6.02 Hemoglobin 15.5 Hematocrit 48.0 Mean Corpuscular 79.7 L Volume Mean Corpuscular 25.7 L Hemoglobin Mean Corpuscular 32.3 Hemoglobin Concent Red Cell 13.4 Distribution Width Platelet Count 394 Mean Platelet Volume 9.7 Immature 0.600 H Granulocytes % Neutrophils % 89.2 H Lymphocytes % 5.8 L Monocytes % 3.7 Eosinophils % 0.5 Basophils % 0.2 Nucleated Red Blood 0.0 Cells % Immature 0.100 H Granulocytes # Neutrophils # 14.5 H Lymphocytes # 1.0 Monocytes # 0.6 Eosinophils # 0.1 Basophils # 0.0 Nucleated Red Blood 0.0 Cells # Medications Medication Current Medications IV Flush (NS 3 ml) 3 ml PER PROTOCOL IV ; Start 01/21/19 at 18:00 Acetaminophen/ Hydrocodone Bitart ([place] (5/325)) 1 tab Q6H PRN PO .MOD PAIN 4- 6; Start 01/21/19 at 18:00 Heparin Sodium (Porcine) (Heparin (5000 Units/1ml)) 5,000 unit Q12 SC Last administered on 01/22/19 21:09; Admin Dose 5,000 UNIT; Start 01/21/19 at 21:00 Cefepime HCl 50 ml @ 100 mls/hr Q12 IVPB Last administered on 01/22/19 21:03; Admin Dose 100 MLS/HR; Start 01/21/19 at 21:00 Clonidine (Catapres) 0.2 mg TID PRN PO SBP ABOVE 180..... Last administered on 01/22/19 16:21; Admin Dose 0.2 MG; Start 01/21/19 at 19:30 Diagnostic Test (Pha) (Accu-Chek) 1 ea AC MEALS AND BEDTIME XX Last administered on 01/22/19 17:24; Admin Dose 1 EA; Start 01/21/19 at 21:00 Insulin Glargine (Lantus) 11 units DAILY@2000 SC Last administered on 01/22/19 19:58; Admin Dose 11 UNITS; Start 01/21/19 at 20:00 Insulin Aspart (Novolog Insulin Pen) 4 unit WITH MEALS SC Last administered on 01/22/19 17:22; Admin Dose 4 UNIT; Start 01/22/19 at 07:35 Insulin Aspart (Novolog Insulin Pen) NOVOLOG *MILD* ALGORITHM WITH MEALS BEDTIME SC Last administered on 01/22/19at 21:10; Admin Dose 1 UNIT; Start 01/21/19 at 21:00 Miscellaneous Information 1 ea NOTE XX ; Start 01/21/19 at 20:30 Glucose (Glutose) 15 gm Q15M PRN PO DECREASED GLUCOSE; Start 01/21/19 at 20:30 Glucose (Glutose) 22.5 gm Q15M PRN PO DECREASED GLUCOSE; Start 01/21/19 at 20:30 Dextrose (D50w Syringe) 25 ml Q15M PRN IV DECREASED GLUCOSE; Start 01/21/19 at 20:30 Dextrose (D50w Syringe) 50 ml Q15M PRN IV DECREASED GLUCOSE; Start 01/21/19 at 20:30 Glucagon (Glucagen) 1 mg Q15M PRN IM DECREASED GLUCOSE; Start 01/21/19 at 20:30 Glucose (Glutose) 15 gm Q15M PRN BUCCAL DECREASED GLUCOSE; Start 01/21/19 at 20:30 Hydralazine HCl (Apresoline) 10 mg Q4H PRN IV ELEVATED BLOOD PRESSURE Last administered on 01/23/19at 02:38; Admin Dose 10 MG; Start 01/22/19 at 06:30 Doxycycline Hyclate (Vibramycin) 100 mg BID PO Last administered on 01/22/19at 21:04; Admin Dose 100 MG; Start 01/22/19 at 21:00 Furosemide (Lasix) 40 mg DAILY IV Last administered on 01/22/19at 13:52; Admin Dose 40 MG; Start 01/22/19 at 12:00 FRANCISCO NYE MD January 23, 2019 08:33
[2019-01-23] MEDS: DOXYCYCLINE 100 MG TAB PO SCH ×2 (09:15→20:54)
[2019-01-23] MEDS: CEFEPIME 1GM/50 ML (PMX) 50 ML IVPB SCH ×2 (09:16→20:54)
[2019-01-23] MEDS: HEPARIN 5,000 UNIT/1 ML VIAL SC SCH ×2 (09:16→20:55)
[2019-01-23] MEDS: FUROSEMIDE 40 MG INJ IV SCH (09:31)
[2019-01-23 10:25] VITALS: BP 165/90; PULSE 104; RESP 18
--- NOTE | 2019-01-23 14:15 | CONS ---
Consult Date/Type/Reason Admit Date/Time January 21, 2019 at 16:24 Initial Consult Date 01/22/19 Type of Consult Pulmonary Date/Time of Note DATE: 01/23/19 TIME: 14:13 Subjective Significantly improved today. Pending thoracentesis. Objective Vital Signs Date Temp Pulse Resp B/P (MAP) Pulse Ox O2 O2 Flow FiO2 Time Delivery Rate 01/23/19 99.0 104 18 165/90 96 Room Air 10:25 (115) 01/23/19 2.0 08:40 Intake and Output 01/22/19 01/22/19 01/23/19 1515:00 23:00 07:00 IntakeIntake Total 240 ml 350 ml 1000 ml OutputOutput Total 250 ml 1500 ml 225 ml BalanceBalance -10 ml -1150 ml 775 ml Exam PHYSICAL EXAMINATION: GENERAL: Well-nourished, well-developed gentleman, appears comfortable at rest, in no acute distress. VITAL SIGNS: NECK: Supple. No JVD or lymphadenopathy. CARDIAC: S1, S2. No added sounds or murmurs. CHEST: Diffuse bilateral expiratory wheezing. ABDOMEN: Soft, nontender. No guarding or rebound. EXTREMITIES: No cyanosis, clubbing, edema. NEUROLOGIC: Grossly intact. No focal deficits. Results/Medications Result Diagram: 01/23/19 0602 01/23/19 0602 Results 24 hrs Laboratory Tests Test 01/22/19 17:18 01/22/19 19:56 01/22/19 21:03 01/23/19 06:02 Bedside Glucose 113 237 H 215 White Blood Count 16.3 #H Red Blood Count 6.02 Hemoglobin 15.5 Hematocrit 48.0 Mean Corpuscular 79.7 L Volume Mean Corpuscular 25.7 L Hemoglobin Mean Corpuscular 32.3 Hemoglobin Concent Red Cell 13.4 Distribution Width Platelet Count 394 Mean Platelet Volume 9.7 Immature 0.600 H Granulocytes % Neutrophils % 89.2 H Lymphocytes % 5.8 L Monocytes % 3.7 Eosinophils % 0.5 Basophils % 0.2 Nucleated Red Blood 0.0 Cells % Immature 0.100 H Granulocytes # Neutrophils # 14.5 H Lymphocytes # 1.0 Monocytes # 0.6 Eosinophils # 0.1 Basophils # 0.0 Nucleated Red Blood 0.0 Cells # Erythrocyte 41 H Sedimentation Rate Sodium Level 141 Potassium Level 3.4 L Chloride Level 101 Carbon Dioxide Level 26 Anion Gap 14 H Blood Urea Nitrogen 20 Creatinine 1.37 H Est Glomerular 52 L Filtrat Rate mL/min Glucose Level 116 Calcium Level 9.0 Total Bilirubin 0.5 Direct Bilirubin 0.00 Indirect Bilirubin 0.5 Aspartate Amino 46 # Transf (AST/SGOT) Alanine 25 Aminotransferase (AL T/SGPT) Alkaline Phosphatase 63 Total Protein 6.6 Albumin 3.5 Globulin 3.10 Albumin/Globulin 1.12 Ratio Procalcitonin 0.15 H Test 01/23/19 08:13 01/23/19 12:09 Bedside Glucose 127 136 Medications Current Medications IV Flush (NS 3 ml) 3 ml PER PROTOCOL IV ; Start 01/21/19 at 18:00 Acetaminophen/ Hydrocodone Bitart ([place] (5/325)) 1 tab Q6H PRN PO .MOD PAIN 4- 6; Start 01/21/19 at 18:00 Heparin Sodium (Porcine) (Heparin (5000 Units/1ml)) 5,000 unit Q12 SC Last administered on 01/23/19 09:16; Admin Dose 5,000 UNIT; Start 01/21/19 at 21:00 Cefepime HCl 50 ml @ 100 mls/hr Q12 IVPB Last administered on 01/23/19 09:16; Admin Dose 100 MLS/HR; Start 01/21/19 at 21:00 Clonidine (Catapres) 0.2 mg TID PRN PO SBP ABOVE 180..... Last administered on 01/22/19 16:21; Admin Dose 0.2 MG; Start 01/21/19 at 19:30 Diagnostic Test (Pha) (Accu-Chek) 1 ea AC MEALS AND BEDTIME XX Last administered on 01/23/19 11:42; Admin Dose 1 EA; Start 01/21/19 at 21:00 Insulin Glargine (Lantus) 11 units DAILY@2000 SC Last administered on 01/22/19 19:58; Admin Dose 11 UNITS; Start 01/21/19 at 20:00 Insulin Aspart (Novolog Insulin Pen) 4 unit WITH MEALS SC Last administered on 01/23/19 12:14; Admin Dose 4 UNIT; Start 01/22/19 at 07:35 Insulin Aspart (Novolog Insulin Pen) NOVOLOG *MILD* ALGORITHM WITH MEALS BEDTIME SC Last administered on 5/30/19at 21:10; Admin Dose 1 UNIT; Start 01/21/19 at 21:00 Miscellaneous Information 1 ea NOTE XX ; Start 01/21/19 at 20:30 Glucose (Glutose) 15 gm Q15M PRN PO DECREASED GLUCOSE; Start 01/21/19 at 20:30 Glucose (Glutose) 22.5 gm Q15M PRN PO DECREASED GLUCOSE; Start 01/21/19 at 20:30 Dextrose (D50w Syringe) 25 ml Q15M PRN IV DECREASED GLUCOSE; Start 01/21/19 at 20:30 Dextrose (D50w Syringe) 50 ml Q15M PRN IV DECREASED GLUCOSE; Start 01/21/19 at 20:30 Glucagon (Glucagen) 1 mg Q15M PRN IM DECREASED GLUCOSE; Start 01/21/19 at 20:30 Glucose (Glutose) 15 gm Q15M PRN BUCCAL DECREASED GLUCOSE; Start 01/21/19 at 20:30 Hydralazine HCl (Apresoline) 10 mg Q4H PRN IV ELEVATED BLOOD PRESSURE Last administered on 01/23/19at 02:38; Admin Dose 10 MG; Start 01/22/19 at 06:30 Doxycycline Hyclate (Vibramycin) 100 mg BID PO Last administered on 01/23/19at 09:15; Admin Dose 100 MG; Start 01/22/19 at 21:00 Furosemide (Lasix) 40 mg DAILY IV Last administered on 01/23/19at 09:31; Admin Dose 40 MG; Start 01/22/19 at 12:00 Assessment/Plan Hospital Course (Demo Recall) IMPRESSION: 1. Possible atypical versus healthcare-associated versus community-acquired pneumonia. 2. Questionable hypersensitivity pneumonitis versus vasculitis. 3. Evidence of congestive cardiac failure with right pleural effusion. Plan 1. Continue antibiotics., Agree with work-up for atypical pneumonia, or vasculitis. 2. Supplemental O2. 3. Diuresis. 4. Right thoracentesis with pleural fluid studies. 5. Echocardiogram shows preserved ejection fraction but grade 1 diastolic dysfunction 6. DVT and GI prophylaxis. ELADIO JEAN MD, [facility] January 23, 2019 14:15
[2019-01-23 14:31] VITALS: BP 170/85; PULSE 94; RESP 18
--- NOTE | 2019-01-23 15:11 | PN ---
Date/Time of Note Date/Time of Note DATE: 01/23/19 TIME: 15:10 Assessment/Plan VTE Prophylaxis Risk score (from Nsg)>0 risk: 2 SCD applied (from Nsg): Yes Pharmacological prophylaxis: heparin Lines/Catheters IV Catheter Type (from Nrsg): Peripheral IV Assessment/Plan Hospital Course Comfortable appearing Aox3 Breathing comfortable Crackles on inspiration, good air entry Flat neck veins RRR This is a 63-year-old male with a history of diabetes and hypertension with who presents with 6 weeks of resolving pneumonia. Found to have fever mild hypoxia and diffuse interstitial infiltrates. Picture is concerning for an atypical pneumonia pattern perhaps a fungal pneumonia. Bacterial pneumonia is less lik ric but certainly possible - Seems to have improved a bit so will continue broad-spectrum antibiotics for now: doxy/cefepime per Dr Trujillo - Await ANCA, AMBREEN, anti GBM,coccidial mycosis, legionella, mycoplasma - CT chest shows possible CHF with effusion -> diagnostic thoracentesis pending and lasix daily. TTE with diastolic dysfunction - O2 as needed CKD II: - [place] UA, suspect chronic CKD DMII: - basal/bolus Hypertension: - home clonidine Result Diagram: 01/23/19 0602 01/23/19 0602 Results 24hrs Laboratory Tests Test 01/22/19 17:18 01/22/19 19:56 01/22/19 21:03 01/23/19 06:02 Bedside Glucose 113 237 H 215 White Blood Count 16.3 #H Red Blood Count 6.02 Hemoglobin 15.5 Hematocrit 48.0 Mean Corpuscular 79.7 L Volume Mean Corpuscular 25.7 L Hemoglobin Mean Corpuscular 32.3 Hemoglobin Concent Red Cell 13.4 Distribution Width Platelet Count 394 Mean Platelet Volume 9.7 Immature 0.600 H Granulocytes % Neutrophils % 89.2 H Lymphocytes % 5.8 L Monocytes % 3.7 Eosinophils % 0.5 Basophils % 0.2 Nucleated Red Blood 0.0 Cells % Immature 0.100 H Granulocytes # Neutrophils # 14.5 H Lymphocytes # 1.0 Monocytes # 0.6 Eosinophils # 0.1 Basophils # 0.0 Nucleated Red Blood 0.0 Cells # Erythrocyte 41 H Sedimentation Rate Sodium Level 141 Potassium Level 3.4 L Chloride Level 101 Carbon Dioxide Level 26 Anion Gap 14 H Blood Urea Nitrogen 20 Creatinine 1.37 H Est Glomerular 52 L Filtrat Rate mL/min Glucose Level 116 Calcium Level 9.0 Total Bilirubin 0.5 Direct Bilirubin 0.00 Indirect Bilirubin 0.5 Aspartate Amino 46 # Transf (AST/SGOT) Alanine 25 Aminotransferase (AL T/SGPT) Alkaline Phosphatase 63 Total Protein 6.6 Albumin 3.5 Globulin 3.10 Albumin/Globulin 1.12 Ratio Procalcitonin 0.15 H Test 01/23/19 08:13 01/23/19 12:09 Bedside Glucose 127 136 Subjective 24 Hr Interval Summary Free Text/Dictation Breathing much improved today TTE shows normal structure, grade 1 diastolic dysfunction Exam/Review of Systems Exam Vitals Vital Signs Date Temp Pulse Resp B/P (MAP) Pulse Ox O2 O2 Flow FiO2 Time Delivery Rate 01/23/19 98.7 94 18 170/85 98 Room Air 14:31 (113) 01/23/19 2.0 08:40 Intake and Output 01/22/19 01/22/19 01/23/19 1515:00 23:00 07:00 IntakeIntake Total 240 ml 350 ml 1000 ml OutputOutput Total 250 ml 1500 ml 225 ml BalanceBalance -10 ml -1150 ml 775 ml Results Results 24hrs Laboratory Tests Test 01/22/19 17:18 01/22/19 19:56 01/22/19 21:03 01/23/19 06:02 Bedside Glucose 113 237 H 215 White Blood Count 16.3 #H Red Blood Count 6.02 Hemoglobin 15.5 Hematocrit 48.0 Mean Corpuscular 79.7 L Volume Mean Corpuscular 25.7 L Hemoglobin Mean Corpuscular 32.3 Hemoglobin Concent Red Cell 13.4 Distribution Width Platelet Count 394 Mean Platelet Volume 9.7 Immature 0.600 H Granulocytes % Neutrophils % 89.2 H Lymphocytes % 5.8 L Monocytes % 3.7 Eosinophils % 0.5 Basophils % 0.2 Nucleated Red Blood 0.0 Cells % Immature 0.100 H Granulocytes # Neutrophils # 14.5 H Lymphocytes # 1.0 Monocytes # 0.6 Eosinophils # 0.1 Basophils # 0.0 Nucleated Red Blood 0.0 Cells # Erythrocyte 41 H Sedimentation Rate Sodium Level 141 Potassium Level 3.4 L Chloride Level 101 Carbon Dioxide Level 26 Anion Gap 14 H Blood Urea Nitrogen 20 Creatinine 1.37 H Est Glomerular 52 L Filtrat Rate mL/min Glucose Level 116 Calcium Level 9.0 Total Bilirubin 0.5 Direct Bilirubin 0.00 Indirect Bilirubin 0.5 Aspartate Amino 46 # Transf (AST/SGOT) Alanine 25 Aminotransferase (AL T/SGPT) Alkaline Phosphatase 63 Total Protein 6.6 Albumin 3.5 Globulin 3.10 Albumin/Globulin 1.12 Ratio Procalcitonin 0.15 H Test 01/23/19 08:13 01/23/19 12:09 Bedside Glucose 127 136 Medications Medication Current Medications IV Flush (NS 3 ml) 3 ml PER PROTOCOL IV ; Start 01/21/19 at 18:00 Acetaminophen/ Hydrocodone Bitart ([place] (5/325)) 1 tab Q6H PRN PO .MOD PAIN 4- 6; Start 01/21/19 at 18:00 Heparin Sodium (Porcine) (Heparin (5000 Units/1ml)) 5,000 unit Q12 SC Last administered on 01/23/19 09:16; Admin Dose 5,000 UNIT; Start 01/21/19 at 21:00 Cefepime HCl 50 ml @ 100 mls/hr Q12 IVPB Last administered on 01/23/19 09:16; Admin Dose 100 MLS/HR; Start 01/21/19 at 21:00 Clonidine (Catapres) 0.2 mg TID PRN PO SBP ABOVE 180..... Last administered on 01/22/19 16:21; Admin Dose 0.2 MG; Start 01/21/19 at 19:30 Diagnostic Test (Pha) (Accu-Chek) 1 ea AC MEALS AND BEDTIME XX Last administered on 01/23/19 11:42; Admin Dose 1 EA; Start 01/21/19 at 21:00 Insulin Glargine (Lantus) 11 units DAILY@2000 SC Last administered on 01/22/19 19:58; Admin Dose 11 UNITS; Start 01/21/19 at 20:00 Insulin Aspart (Novolog Insulin Pen) 4 unit WITH MEALS SC Last administered on 01/23/19 12:14; Admin Dose 4 UNIT; Start 01/22/19 at 07:35 Insulin Aspart (Novolog Insulin Pen) NOVOLOG *MILD* ALGORITHM WITH MEALS BEDTIME SC Last administered on 01/22/19 21:10; Admin Dose 1 UNIT; Start 01/21/19 at 21:00 Miscellaneous Information 1 ea NOTE XX ; Start 01/21/19 at 20:30 Glucose (Glutose) 15 gm Q15M PRN PO DECREASED GLUCOSE; Start 01/21/19 at 20:30 Glucose (Glutose) 22.5 gm Q15M PRN PO DECREASED GLUCOSE; Start 01/21/19 at 20:30 Dextrose (D50w Syringe) 25 ml Q15M PRN IV DECREASED GLUCOSE; Start 01/21/19 at 20:30 Dextrose (D50w Syringe) 50 ml Q15M PRN IV DECREASED GLUCOSE; Start 01/21/19 at 20:30 Glucagon (Glucagen) 1 mg Q15M PRN IM DECREASED GLUCOSE; Start 01/21/19 at 20:30 Glucose (Glutose) 15 gm Q15M PRN BUCCAL DECREASED GLUCOSE; Start 01/21/19 at 20:30 Hydralazine HCl (Apresoline) 10 mg Q4H PRN IV ELEVATED BLOOD PRESSURE Last administered on 01/23/19at 02:38; Admin Dose 10 MG; Start 01/22/19 at 06:30 Doxycycline Hyclate (Vibramycin) 100 mg BID PO Last administered on 01/23/19at 09:15; Admin Dose 100 MG; Start 01/22/19 at 21:00 Furosemide (Lasix) 40 mg DAILY IV Last administered on 01/23/19at 09:31; Admin Dose 40 MG; Start 01/22/19 at 12:00 GLADYS LUNA MD January 23, 2019 15:11
[2019-01-23] MEDS ORDERED: LIDOCAINE 1% (MPF) 5 ML VIAL ONE (16:16)
[2019-01-23 20:02] VITALS: BP 170/81; PULSE 101; RESP 20
[2019-01-23] MEDS: INSULIN GLARGINE [LANTus] (100 UNITS/ML) SYG SC SCH (20:07)
[2019-01-23 22:45] VITALS: BP 161/90; PULSE 92; RESP 18
[2019-01-24] VITALS (7 sets, daily range): BP systolic 160–172; BP diastolic 80–99; PULSE 84–100; RESP 16–20
[2019-01-24] MEDS: ACCU-CHEK XX SCH ×4 (07:30→20:47)
--- NOTE | 2019-01-24 07:51 | CONS ---
Assessment/Plan Assessment/Plan Hospital Course (Demo Recall) 1) alveolar/interstitial pneumonitis CT chest does not show nodules or cavities, this is not a typical pattern for [place] fever continue with cefepime, change vanco/azithro to doxycycline to cover MRSA and atypicals procalcitonin is pending, repeat in a.m. check ESR, AMBREEN, ANCA get viral respiratory panel of nares get nasal for MRSA check quant TB gold in a.m. if pt does not improve in the next few days and lab tests are not revelatory then he will likely need bronch with lung bx 01/23 - initial procalcitonin was neg, repeat is pending pt has pericardial/pleural effusions in combo with his interstitial pneumonitis is indeed concerning for an auto-immune process ESR, AMBREEN, ANCA, anti-gbm are pending continue with doxy/cefepime at present 01/24 - pleural fluid looked to be transudative, but have order serum LDH to verify, lymphocytic predominant procalcitonin is neg x 2 ESR is mild-moderately elevated continue with doxy/cefepime, although unlikely he has typical pneumonia viral PCR has not been collected yet 2) DM pt states these have been good and his HgbA1C is around 6 3) HTN Consultation Date/Type/Reason Admit Date/Time January 21, 2019 at 16:24 Initial Consult Date 01/22/19 Type of Consult ID Date/Time of Note DATE: 01/24/19 TIME: 07:45 24 HR Interval Summary Free Text/Dictation pt states breathing is easier and that he walked the halls without difficulty no N, V, D had productive cough overnight one time only Exam/Review of Systems Exam Vitals Vital Signs Date Temp Pulse Resp B/P (MAP) Pulse Ox O2 O2 Flow FiO2 Time Delivery Rate 01/24/19 98.7 85 20 164/87 98 06:49 (112) 01/23/19 Nasal 2.0 20:00 Cannula Intake and Output 01/23/19 01/23/19 01/24/19 1515:00 23:00 07:00 IntakeIntake Total 850 ml 50 ml 1480 ml OutputOutput Total 500 ml 525 ml BalanceBalance 350 ml 50 ml 955 ml Constitutional: alert, oriented ENMT: mucosa pink and moist Respiratory: other (bibasilar rales) Cardiovascular: regular rate and rhythm Gastrointestinal: soft, non-tender Results Result Diagram: 01/24/19 0557 01/24/19 0557 Results 24hrs Laboratory Tests Test 01/23/19 08:13 01/23/19 12:09 01/23/19 15:24 01/23/19 17:28 Bedside Glucose 127 136 109 Body Fluid Type PLEURAL FLUID Body Fluid Volume 275.0 Body Fluid Color YELLOW Body Fluid SLIGHTLY CLOUDY Appearance Body Fluid WBC 642 Body Fluid RBC 0 (Auto) Body Fluid 31.9 Polynuclear WBCs (%) Body Fluid 68.1 Mononuclear Cells % Auto Body Fluid Glucose 143 Body Fluid Total 2.6 Protein Body Fluid 407 Lactate Dehydrogen ase Test 01/23/19 20:04 01/23/19 21:02 01/24/19 05:57 Bedside Glucose 146 144 White Blood Count 9.6 # Red Blood Count 5.95 Hemoglobin 15.3 Hematocrit 47.9 Mean Corpuscular 80.5 L Volume Mean Corpuscular 25.7 L Hemoglobin Mean Corpuscular 31.9 L Hemoglobin Concent Red Cell 13.2 Distribution Width Platelet Count 375 Mean Platelet 9.4 Volume Immature 0.400 Granulocytes % Neutrophils % 78.7 H Lymphocytes % 12.0 L Monocytes % 7.0 Eosinophils % 1.6 Basophils % 0.3 Nucleated Red 0.0 Blood Cells % Immature 0.040 H Granulocytes # Neutrophils # 7.5 Lymphocytes # 1.2 Monocytes # 0.7 Eosinophils # 0.2 Basophils # 0.0 Nucleated Red 0.0 Blood Cells # Sodium Level 140 Potassium Level 3.7 Chloride Level 102 Carbon Dioxide 30 Level Anion Gap 8 Blood Urea 23 H Nitrogen Creatinine 1.47 H Est Glomerular 48 L Filtrat Rate mL/min Glucose Level 126 Calcium Level 8.9 Medications Medication Current Medications IV Flush (NS 3 ml) 3 ml PER PROTOCOL IV ; Start 01/21/19 at 18:00 Acetaminophen/ Hydrocodone Bitart ([place] (5/325)) 1 tab Q6H PRN PO .MOD PAIN 4- 6; Start 01/21/19 at 18:00 Heparin Sodium (Porcine) (Heparin (5000 Units/1ml)) 5,000 unit Q12 SC Last administered on 01/23/19at 20:55; Admin Dose 5,000 UNIT; Start 01/21/19 at 21:00 Cefepime HCl 50 ml @ 100 mls/hr Q12 IVPB Last administered on 01/23/19 20:54; Admin Dose 100 MLS/HR; Start 01/21/19 at 21:00 Clonidine (Catapres) 0.2 mg TID PRN PO SBP ABOVE 180..... Last administered on 01/22/19 16:21; Admin Dose 0.2 MG; Start 01/21/19 at 19:30 Diagnostic Test (Pha) (Accu-Chek) 1 ea AC MEALS AND BEDTIME XX Last administered on 01/23/19 17:35; Admin Dose 1 EA; Start 01/21/19 at 21:00 Insulin Glargine (Lantus) 11 units DAILY@2000 SC Last administered on 01/23/19 20:07; Admin Dose 11 UNITS; Start 01/21/19 at 20:00 Insulin Aspart (Novolog Insulin Pen) 4 unit WITH MEALS SC Last administered on 01/23/19 12:14; Admin Dose 4 UNIT; Start 01/22/19 at 07:35 Insulin Aspart (Novolog Insulin Pen) NOVOLOG *MILD* ALGORITHM WITH MEALS BEDTIME SC Last administered on 01/22/19 21:10; Admin Dose 1 UNIT; Start 01/21/19 at 21:00 Miscellaneous Information 1 ea NOTE XX ; Start 01/21/19 at 20:30 Glucose (Glutose) 15 gm Q15M PRN PO DECREASED GLUCOSE; Start 01/21/19 at 20:30 Glucose (Glutose) 22.5 gm Q15M PRN PO DECREASED GLUCOSE; Start 01/21/19 at 20:30 Dextrose (D50w Syringe) 25 ml Q15M PRN IV DECREASED GLUCOSE; Start 01/21/19 at 20:30 Dextrose (D50w Syringe) 50 ml Q15M PRN IV DECREASED GLUCOSE; Start 01/21/19 at 20:30 Glucagon (Glucagen) 1 mg Q15M PRN IM DECREASED GLUCOSE; Start 01/21/19 at 20:30 Glucose (Glutose) 15 gm Q15M PRN BUCCAL DECREASED GLUCOSE; Start 01/21/19 at 20:30 Hydralazine HCl (Apresoline) 10 mg Q4H PRN IV ELEVATED BLOOD PRESSURE Last administered on 01/23/19 17:21; Admin Dose 10 MG; Start 01/22/19 at 06:30 Doxycycline Hyclate (Vibramycin) 100 mg BID PO Last administered on 01/23/19at 20:54; Admin Dose 100 MG; Start 01/22/19 at 21:00 Furosemide (Lasix) 40 mg DAILY IV Last administered on 01/23/19at 09:31; Admin Dose 40 MG; Start 01/22/19 at 12:00 FRANCISCO NYE MD Jan 24, 2019 07:51
[2019-01-24] MEDS: INSULIN ASPART [NOVOLOG] 3 ML PEN SC SCH ×7 (08:00→20:43)
[2019-01-24] MEDS: CEFEPIME 1GM/50 ML (PMX) 50 ML IVPB SCH ×2 (08:40→20:42)
[2019-01-24] MEDS: HEPARIN 5,000 UNIT/1 ML VIAL SC SCH ×2 (08:40→20:42)
[2019-01-24] MEDS: FUROSEMIDE 40 MG INJ IV SCH (08:41)
[2019-01-24] MEDS: DOXYCYCLINE 100 MG TAB PO SCH ×2 (08:41→20:42)
--- NOTE | 2019-01-24 14:49 | CONS ---
Consult Date/Type/Reason Admit Date/Time January 21, 2019 at 16:24 Initial Consult Date 01/22/19 Type of Consultation: Pulm/CCM Date/Time of Note DATE: 01/24/19 TIME: 14:44 Subjective No events. Objective Vitals Vital Signs Date Temp Pulse Resp B/P (MAP) Pulse Ox O2 O2 Flow FiO2 Time Delivery Rate 01/24/19 97.8 90 16 172/95 96 14:28 (120) 01/24/19 Room Air 13:28 01/24/19 2.0 08:51 Intake and Output 01/23/19 01/23/19 01/24/19 1515:00 23:00 07:00 IntakeIntake Total 850 ml 50 ml 1480 ml OutputOutput Total 500 ml 525 ml BalanceBalance 350 ml 50 ml 955 ml Exam NECK: Supple. No JVD or lymphadenopathy. CARDIAC: S1, S2. No added sounds or murmurs. CHEST: Diffuse bilateral expiratory wheezing. ABDOMEN: Soft, nontender. No guarding or rebound. EXTREMITIES: No cyanosis, clubbing, edema. NEUROLOGIC: Grossly intact. No focal deficits. Results/Medications Result Diagram: 01/24/19 0557 01/24/19 0557 Results 24 hrs Laboratory Tests Test 01/23/19 15:24 01/23/19 17:28 01/23/19 20:04 01/23/19 21:02 Body Fluid Type PLEURAL FLUID Body Fluid Volume 275.0 Body Fluid Color YELLOW Body Fluid SLIGHTLY CLOUDY Appearance Body Fluid WBC 642 Body Fluid RBC 0 (Auto) Body Fluid 31.9 Polynuclear WBCs (%) Body Fluid 68.1 Mononuclear Cells % Auto Body Fluid Glucose 143 Body Fluid Total 2.6 Protein Body Fluid 407 Lactate Dehydrogen ase Bedside Glucose 109 146 144 Test 01/24/19 05:53 01/24/19 05:57 01/24/19 08:16 01/24/19 12:16 Lactate 336 Dehydrogenase White Blood Count 9.6 # Red Blood Count 5.95 Hemoglobin 15.3 Hematocrit 47.9 Mean Corpuscular 80.5 L Volume Mean Corpuscular 25.7 L Hemoglobin Mean Corpuscular 31.9 L Hemoglobin Concent Red Cell 13.2 Distribution Width Platelet Count 375 Mean Platelet 9.4 Volume Immature 0.400 Granulocytes % Neutrophils % 78.7 H Lymphocytes % 12.0 L Monocytes % 7.0 Eosinophils % 1.6 Basophils % 0.3 Nucleated Red 0.0 Blood Cells % Immature 0.040 H Granulocytes # Neutrophils # 7.5 Lymphocytes # 1.2 Monocytes # 0.7 Eosinophils # 0.2 Basophils # 0.0 Nucleated Red 0.0 Blood Cells # Sodium Level 140 Potassium Level 3.7 Chloride Level 102 Carbon Dioxide 30 Level Anion Gap 8 Blood Urea 23 H Nitrogen Creatinine 1.47 H Est Glomerular 48 L Filtrat Rate mL/min Glucose Level 126 Calcium Level 8.9 Bedside Glucose 128 134 Home Meds Reported Medications Clonidine Hcl* (Clonidine Hcl*) 0.2 Mg Tablet, 0.2 MG PO TID PRN for ELEVATED BLOOD PRESSURE, TAB 01/21/19 Discontinued Reported Medications Metformin Hcl* (Metformin Hcl*) 1,000 Mg Tablet, 1000 MG PO WITH BREAKFAST DINNE, #60 TAB 01/21/19 Medications Current Medications IV Flush (NS 3 ml) 3 ml PER PROTOCOL IV ; Start 01/21/19 at 18:00 Acetaminophen/ Hydrocodone Bitart ([place] (5/325)) 1 tab Q6H PRN PO .MOD PAIN 4- 6; Start 01/21/19 at 18:00 Heparin Sodium (Porcine) (Heparin (5000 Units/1ml)) 5,000 unit Q12 SC Last administered on 01/24/19 08:40; Admin Dose 5,000 UNIT; Start 01/21/19 at 21:00 Cefepime HCl 50 ml @ 100 mls/hr Q12 IVPB Last administered on 01/24/19 08:40; Admin Dose 100 MLS/HR; Start 01/21/19 at 21:00 Clonidine (Catapres) 0.2 mg TID PRN PO SBP ABOVE 180..... Last administered on 01/22/19 16:21; Admin Dose 0.2 MG; Start 01/21/19 at 19:30 Diagnostic Test (Pha) (Accu-Chek) 1 ea AC MEALS AND BEDTIME XX Last administered on 01/23/19 17:35; Admin Dose 1 EA; Start 01/21/19 at 21:00 Insulin Glargine (Lantus) 11 units DAILY@2000 SC Last administered on 01/23/19 20:07; Admin Dose 11 UNITS; Start 01/21/19 at 20:00 Insulin Aspart (Novolog Insulin Pen) 4 unit WITH MEALS SC Last administered on 01/24/19at 12:19; Admin Dose 4 UNIT; Start 01/22/19 at 07:35 Insulin Aspart (Novolog Insulin Pen) NOVOLOG *MILD* ALGORITHM WITH MEALS BEDTIME SC Last administered on 01/22/19at 21:10; Admin Dose 1 UNIT; Start 01/21/19 at 21:00 Miscellaneous Information 1 ea NOTE XX ; Start 01/21/19 at 20:30 Glucose (Glutose) 15 gm Q15M PRN PO DECREASED GLUCOSE; Start 01/21/19 at 20:30 Glucose (Glutose) 22.5 gm Q15M PRN PO DECREASED GLUCOSE; Start 01/21/19 at 20:30 Dextrose (D50w Syringe) 25 ml Q15M PRN IV DECREASED GLUCOSE; Start 01/21/19 at 20:30 Dextrose (D50w Syringe) 50 ml Q15M PRN IV DECREASED GLUCOSE; Start 01/21/19 at 20:30 Glucagon (Glucagen) 1 mg Q15M PRN IM DECREASED GLUCOSE; Start 01/21/19 at 20:30 Glucose (Glutose) 15 gm Q15M PRN BUCCAL DECREASED GLUCOSE; Start 01/21/19 at 20:30 Hydralazine HCl (Apresoline) 10 mg Q4H PRN IV ELEVATED BLOOD PRESSURE Last ad ministered on 01/23/19at 17:21; Admin Dose 10 MG; Start 01/22/19 at 06:30 Doxycycline Hyclate (Vibramycin) 100 mg BID PO Last administered on 01/24/19at 08:41; Admin Dose 100 MG; Start 01/22/19 at 21:00 Furosemide (Lasix) 40 mg DAILY IV Last administered on 01/24/19at 08:41; Admin Dose 40 MG; Start 01/22/19 at 12:00 Assessment/Plan Assessment/Plan (Daily) IMP: 1. Diffuse Parenchymal Lung Disease--with CT showing ill-defined GGO and perilymphatic micronodules as well as interlobular septal thickening. Findings not consistent most infectious etiologies, except miliary TB, which it is not typical for. Considerations would include lymphangitic carcinomatosis and less likely sarcoidosis. Findings also not consistent with HP 2. Lymphocytic predominant exudative effusion--concerning for malignancy vs.TB RECS: 1. F/U pleural fluid cytology 2. Would recommend bronchoscopy with TBBx GILLIAN CARMONA MD Jan 24, 2019 14:49
--- NOTE | 2019-01-24 15:20 | PN ---
Date/Time of Note Date/Time of Note DATE: 01/24/19 TIME: 15:17 Assessment/Plan VTE Prophylaxis Risk score (from Nsg)>0 risk: 3 SCD applied (from Nsg): Yes Pharmacological prophylaxis: heparin Lines/Catheters IV Catheter Type (from Nrsg): Saline Lock Assessment/Plan Hospital Course Comfortable appearing Aox3 Breathing comfortable Crackles on inspiration, good air entry Flat neck veins RRR This is a 63-year-old male with a history of diabetes and hypertension with who presents with 6 weeks of resolving pneumonia. Found to have fever mild hypoxia and diffuse interstitial infiltrates. Picture is concerning for an atypical pneumonia pattern perhaps a fungal pneumonia. Bacterial pneumonia is less likely but certainly possible - Seems to have improved a bit so will continue broad-spectrum antibiotics for now: doxy/cefepime per Dr Trujillo - Negative ANCA, AMBREEN, anti GBM,coccidial mycosis, legionella, mycoplasma - CT chest shows possible CHF with effusion -> diagnostic thoracentesis with exudative picture - Consideration of bronch TBBx per pulmonary, appreciate Dr Bonner recommendations TTE with diastolic dysfunction - Lasix seems to have helped - O2 as needed CKD II: - [place] UA, suspect chronic CKD DMII: - basal/bolus Hypertension: - home clonidine Result Diagram: 01/24/19 0557 01/24/19 0557 Results 24hrs Laboratory Tests Test 01/23/19 15:24 01/23/19 17:28 01/23/19 20:04 01/23/19 21:02 Body Fluid Type PLEURAL FLUID Body Fluid Volume 275.0 Body Fluid Color YELLOW Body Fluid SLIGHTLY CLOUDY Appearance Body Fluid WBC 642 Body Fluid RBC 0 (Auto) Body Fluid 31.9 Polynuclear WBCs (%) Body Fluid 68.1 Mononuclear Cells % Auto Body Fluid Glucose 143 Body Fluid Total 2.6 Protein Body Fluid 407 Lactate Dehydrogen ase Bedside Glucose 109 146 144 Test 01/24/19 05:53 01/24/19 05:57 01/24/19 08:16 01/24/19 12:16 Lactate 336 Dehydrogenase White Blood Count 9.6 # Red Blood Count 5.95 Hemoglobin 15.3 Hematocrit 47.9 Mean Corpuscular 80.5 L Volume Mean Corpuscular 25.7 L Hemoglobin Mean Corpuscular 31.9 L Hemoglobin Concent Red Cell 13.2 Distribution Width Platelet Count 375 Mean Platelet 9.4 Volume Immature 0.400 Granulocytes % Neutrophils % 78.7 H Lymphocytes % 12.0 L Monocytes % 7.0 Eosinophils % 1.6 Basophils % 0.3 Nucleated Red 0.0 Blood Cells % Immature 0.040 H Granulocytes # Neutrophils # 7.5 Lymphocytes # 1.2 Monocytes # 0.7 Eosinophils # 0.2 Basophils # 0.0 Nucleated Red 0.0 Blood Cells # Sodium Level 140 Potassium Level 3.7 Chloride Level 102 Carbon Dioxide 30 Level Anion Gap 8 Blood Urea 23 H Nitrogen Creatinine 1.47 H Est Glomerular 48 L Filtrat Rate mL/min Glucose Level 126 Calcium Level 8.9 Bedside Glucose 128 134 Subjective 24 Hr Interval Summary Free Text/Dictation Much improved clinically No longer with fevers Breathing more comfortably, no longer hypoxic Thoracentesis performed Exam/Review of Systems Exam Vitals Vital Signs Date Temp Pulse Resp B/P (MAP) Pulse Ox O2 O2 Flow FiO2 Time Delivery Rate 01/24/19 97.8 90 16 172/95 96 14:28 (120) 01/24/19 Room Air 13:28 01/24/19 2.0 08:51 Intake and Output 01/23/19 01/23/19 01/24/19 1515:00 23:00 07:00 IntakeIntake Total 850 ml 50 ml 1480 ml OutputOutput Total 500 ml 525 ml BalanceBalance 350 ml 50 ml 955 ml Results Results 24hrs Laboratory Tests Test 01/23/19 15:24 01/23/19 17:28 01/23/19 20:04 01/23/19 21:02 Body Fluid Type PLEURAL FLUID Body Fluid Volume 275.0 Body Fluid Color YELLOW Body Fluid SLIGHTLY CLOUDY Appearance Body Fluid WBC 642 Body Fluid RBC 0 (Auto) Body Fluid 31.9 Polynuclear WBCs (%) Body Fluid 68.1 Mononuclear Cells % Auto Body Fluid Glucose 143 Body Fluid Total 2.6 Protein Body Fluid 407 Lactate Dehydrogen ase Bedside Glucose 109 146 144 Test 01/24/19 05:53 01/24/19 05:57 01/24/19 08:16 01/24/19 12:16 Lactate 336 Dehydrogenase White Blood Count 9.6 # Red Blood Count 5.95 Hemoglobin 15.3 Hematocrit 47.9 Mean Corpuscular 80.5 L Volume Mean Corpuscular 25.7 L Hemoglobin Mean Corpuscular 31.9 L Hemoglobin Concent Red Cell 13.2 Distribution Width Platelet Count 375 Mean Platelet 9.4 Volume Immature 0.400 Granulocytes % Neutrophils % 78.7 H Lymphocytes % 12.0 L Monocytes % 7.0 Eosinophils % 1.6 Basophils % 0.3 Nucleated Red 0.0 Blood Cells % Immature 0.040 H Granulocytes # Neutrophils # 7.5 Lymphocytes # 1.2 Monocytes # 0.7 Eosinophils # 0.2 Basophils # 0.0 Nucleated Red 0.0 Blood Cells # Sodium Level 140 Potassium Level 3.7 Chloride Level 102 Carbon Dioxide 30 Level Anion Gap 8 Blood Urea 23 H Nitrogen Creatinine 1.47 H Est Glomerular 48 L Filtrat Rate mL/min Glucose Level 126 Calcium Level 8.9 Bedside Glucose 128 134 Medications Medication Current Medications IV Flush (NS 3 ml) 3 ml PER PROTOCOL IV ; Start 01/21/19 at 18:00 Acetaminophen/ Hydrocodone Bitart ([place] (5/325)) 1 tab Q6H PRN PO .MOD PAIN 4- 6; Start 01/21/19 at 18:00 Heparin Sodium (Porcine) (Heparin (5000 Units/1ml)) 5,000 unit Q12 SC Last administered on 01/24/19at 08:40; Admin Dose 5,000 UNIT; Start 01/21/19 at 21:00 Cefepime HCl 50 ml @ 100 mls/hr Q12 IVPB Last administered on 01/24/19 08:40; Admin Dose 100 MLS/HR; Start 01/21/19 at 21:00 Clonidine (Catapres) 0.2 mg TID PRN PO SBP ABOVE 180..... Last administered on 01/22/19at 16:21; Admin Dose 0.2 MG; Start 01/21/19 at 19:30 Diagnostic Test (Pha) (Accu-Chek) 1 ea AC MEALS AND BEDTIME XX Last administered on 01/23/19at 17:35; Admin Dose 1 EA; Start 01/21/19 at 21:00 Insulin Glargine (Lantus) 11 units DAILY@2000 SC Last administered on 01/23/19 20:07; Admin Dose 11 UNITS; Start 01/21/19 at 20:00 Insulin Aspart (Novolog Insulin Pen) 4 unit WITH MEALS SC Last administered on 01/24/19at 12:19; Admin Dose 4 UNIT; Start 01/22/19 at 07:35 Insulin Aspart (Novolog Insulin Pen) NOVOLOG *MILD* ALGORITHM WITH MEALS BEDTIME SC Last administered on 01/22/19at 21:10; Admin Dose 1 UNIT; Start 01/21/19 at 21:00 Miscellaneous Information 1 ea NOTE XX ; Start 01/21/19 at 20:30 Glucose (Glutose) 15 gm Q15M PRN PO DECREASED GLUCOSE; Start 01/21/19 at 20:30 Glucose (Glutose) 22.5 gm Q15M PRN PO DECREASED GLUCOSE; Start 01/21/19 at 20:3 0 Dextrose (D50w Syringe) 25 ml Q15M PRN IV DECREASED GLUCOSE; Start 01/21/19 at 20:30 Dextrose (D50w Syringe) 50 ml Q15M PRN IV DECREASED GLUCOSE; Start 01/21/19 at 20:30 Glucagon (Glucagen) 1 mg Q15M PRN IM DECREASED GLUCOSE; Start 01/21/19 at 20:30 Glucose (Glutose) 15 gm Q15M PRN BUCCAL DECREASED GLUCOSE; Start 01/21/19 at 20:30 Hydralazine HCl (Apresoline) 10 mg Q4H PRN IV ELEVATED BLOOD PRESSURE Last administered on 01/23/19at 17:21; Admin Dose 10 MG; Start 01/22/19 at 06:30 Doxycycline Hyclate (Vibramycin) 100 mg BID PO Last administered on 01/24/19 08:41; Admin Dose 100 MG; Start 01/22/19 at 21:00 Furosemide (Lasix) 40 mg DAILY IV Last administered on 01/24/19at 08:41; Admin Dose 40 MG; Start 01/22/19 at 12:00 GLADYS LUNA MD Jan 24, 2019 15:20
[2019-01-24] MEDS: INSULIN GLARGINE [LANTus] (100 UNITS/ML) SYG SC SCH (20:38)
[2019-01-25 02:00] VITALS: BP 170/89; PULSE 100; RESP 20
--- NOTE | 2019-01-25 07:07 | CONS ---
Assessment/Plan Assessment/Plan Hospital Course (Demo Recall) 1) alveolar/interstitial pneumonitis CT chest does not show nodules or cavities, this is not a typical pattern for [place] continue with cefepime, change vanco/azithro to doxycycline to cover MRSA and atypicals procalcitonin is pending, repeat in a.m. check ESR, AMBREEN, ANCA get viral respiratory panel of nares get nasal for MRSA check quant TB gold in a.m. if pt does not improve in the next few days and lab tests are not revelatory then he will likely need bronch with lung bx 01/23 - initial procalcitonin was neg, repeat is pending pt has pericardial/pleural effusions in combo with his interstitial pneumonitis is indeed concerning for an auto-immune process ESR, AMBREEN, ANCA, anti-gbm are pending continue with doxy/cefepime at present 01/24 - pleural fluid looked to be transudative, but have order serum LDH to verify, lymphocytic predominant procalcitonin is neg x 2 ESR is mild-moderately elevated continue with doxy/cefepime, although unlikely he has typical pneumonia viral PCR has not been collected yet 01/25 - AMBREEN and ANCA were neg quant TB gold and legionella were neg d/c cefepime and start vantin 200mg BID and continue for another 3 days continue doxycycline for another 10 days CXR is improved and symptoms are improved which makes TB or CA less likely ok to d/c from ID perspective but pt should get repeat chest CT in 4-6 weeks 2) DM pt states these have been good and his HgbA1C is around 6 3) HTN Consultation Date/Type/Reason Admit Date/Time January 21, 2019 at 16:24 Initial Consult Date 01/22/19 Type of Consult ID Date/Time of Note DATE: 01/25/19 TIME: 07:03 24 HR Interval Summary Free Text/Dictation pt is doing well and feels better now off O2 no N, V, D cough is mostly gone Exam/Review of Systems Exam Vitals Vital Signs Date Temp Pulse Resp B/P (MAP) Pulse Ox O2 O2 Flow FiO2 Time Delivery Rate 01/25/19 2.0 04:34 01/25/19 98.7 100 20 170/89 99 02:00 (116) 01/24/19 Room Air 17:59 Intake and Output 01/24/19 01/24/1919 1515:00 23:00 07:00 IntakeIntake Total 50 ml 1000 ml 900 ml BalanceBalance 50 ml 1000 ml 900 ml Constitutional: alert Eyes: nl sclera Respiratory: clear to auscultation Cardiovascular: regular rate and rhythm Gastrointestinal: soft, non-tender Results Result Diagram: 01/24/19 0557 01/24/19 0557 Results 24hrs Laboratory Tests Test 01/24/19 08:16 01/24/19 12:16 01/24/19 17:18 01/24/19 20:32 Bedside Glucose 128 134 171 124 Medications Medication Current Medications IV Flush (NS 3 ml) 3 ml PER PROTOCOL IV ; Start 01/21/19 at 18:00 Acetaminophen/ Hydrocodone Bitart ([place] (5/325)) 1 tab Q6H PRN PO .MOD PAIN 4- 6; Start 01/21/19 at 18:00 Heparin Sodium (Porcine) (Heparin (5000 Units/1ml)) 5,000 unit Q12 SC Last administered on 01/24/19at 20:42; Admin Dose 5,000 UNIT; Start 01/21/19 at 21:00 Cefepime HCl 50 ml @ 100 mls/hr Q12 IVPB Last administered on 01/24/19at 20:42; Admin Dose 100 MLS/HR; Start 01/21/19 at 21:00 Clonidine (Catapres) 0.2 mg TID PRN PO SBP ABOVE 180..... Last administered on 01/22/19at 16:21; Admin Dose 0.2 MG; Start 01/21/19 at 19:30 Diagnostic Test (Pha) (Accu-Chek) 1 ea AC MEALS AND BEDTIME XX Last administered on 01/23/19at 17:35; Admin Dose 1 EA; Start 01/21/19 at 21:00 Insulin Glargine (Lantus) 11 units DAILY@2000 SC Last administered on 01/24/19at 20:38; Admin Dose 11 UNITS; Start 01/21/19 at 20:00 Insulin Aspart (Novolog Insulin Pen) 4 unit WITH MEALS SC Last administered on 01/24/19at 17:50; Admin Dose 4 UNIT; Start 01/22/19 at 07:35 Insulin Aspart (Novolog Insulin Pen) NOVOLOG *MILD* ALGORITHM WITH MEALS BEDTIME SC Last administered on 01/24/19at 17:50; Admin Dose 1 UNIT; Start 01/21/19 at 21:00 Miscellaneous Information 1 ea NOTE XX ; Start 01/21/19 at 20:30 Glucose (Glutose) 15 gm Q15M PRN PO DECREASED GLUCOSE; Start 01/21/19 at 20:30 Glucose (Glutose) 22.5 gm Q15M PRN PO DECREASED GLUCOSE; Start 01/21/19 at 20:30 Dextrose (D50w Syringe) 25 ml Q15M PRN IV DECREASED GLUCOSE; Start 01/21/19 at 20:30 Dextrose (D50w Syringe) 50 ml Q15M PRN IV DECREASED GLUCOSE; Start 01/21/19 at 20:30 Glucagon (Glucagen) 1 mg Q15M PRN IM DECREASED GLUCOSE; Start 01/21/19 at 20:30 Glucose (Glutose) 15 gm Q15M PRN BUCCAL DECREASED GLUCOSE; Start 01/21/19 at 20:30 Hydralazine HCl (Apresoline) 10 mg Q4H PRN IV ELEVATED BLOOD PRESSURE Last administered on 01/23/19at 17:21; Admin Dose 10 MG; Start 01/22/19 at 06:30 Doxycycline Hyclate (Vibramycin) 100 mg BID PO Last administered on 01/24/19at 20:42; Admin Dose 100 MG; Start 01/22/19 at 21:00 Furosemide (Lasix) 40 mg DAILY IV Last administered on 01/24/19at 08:41; Admin Dose 40 MG; Start 01/22/19 at 12:00 FRANCISCO NYE MD Jan 25, 2019 07:07
[2019-01-25] MEDS: ACCU-CHEK XX SCH ×4 (07:30→20:52)
[2019-01-25 07:47] VITALS: BP 178/93; PULSE 113; RESP 16
[2019-01-25] MEDS: INSULIN ASPART [NOVOLOG] 3 ML PEN SC SCH ×7 (07:50→20:50)
[2019-01-25] MEDS: HEPARIN 5,000 UNIT/1 ML VIAL SC SCH ×2 (08:22→20:51)
[2019-01-25] MEDS: DOXYCYCLINE 100 MG TAB PO SCH ×2 (08:23→20:51)
[2019-01-25] MEDS: FUROSEMIDE 40 MG INJ IV SCH (08:23)
[2019-01-25 09:00] VITALS: BP 164/95
[2019-01-25] MEDS: CEFPODOXIME 200 MG TAB PO SCH ×2 (09:20→20:51)
--- NOTE | 2019-01-25 15:30 | PN ---
Date/Time of Note Date/Time of Note DATE: 01/25/19 TIME: 15:29 Assessment/Plan VTE Prophylaxis Risk score (from Nsg)>0 risk: 3 SCD applied (from Nsg): Yes Pharmacological prophylaxis: heparin Lines/Catheters IV Catheter Type (from Nrsg): [place] Assessment/Plan Hospital Course Comfortable appearing Aox3 Breathing comfortable Crackles on inspiration, good air entry Flat neck veins RRR This is a 63-year-old male with a history of diabetes and hypertension with who presents with 6 weeks of resolving pneumonia. Found to have fever mild hypoxia and diffuse interstitial infiltrates - Abx per ID - Negative ANCA, AMBREEN - Pending anti GBM,coccidial mycosis, legionella, mycoplasma - Needs bronch with TBBx per pulmonary, appreciate Dr Bonner recommendations TTE with diastolic dysfunction - Lasix seems to have helped - Euvolemic now, conitnue PO lasix CKD II: - [place] UA, suspect chronic CKD DMII: - basal/bolus Hypertension: - home clonidine Result Diagram: 01/24/19 0557 01/24/19 0557 Results 24hrs Laboratory Tests Test 01/24/19 17:18 01/24/19 20:32 01/25/19 07:49 01/25/19 12:10 Bedside Glucose 171 124 129 181 Subjective 24 Hr Interval Summary Free Text/Dictation Symptoms much improved Now feels about back to baseline Exam/Review of Systems Exam Vitals Vital Signs Date Temp Pulse Resp B/P (MAP) Pulse Ox O2 O2 Flow FiO2 Time Delivery Rate 01/25/19 164/95 09:00 (118) 01/25/19 98.2 113 16 95 07:47 01/25/19 2.0 04:34 01/24/19 Room Air 17:59 Intake and Output 01/24/19 01/24/19 01/25/19 1515:00 23:00 07:00 IntakeIntake Total 50 ml 1050 ml 900 ml BalanceBalance 50 ml 1050 ml 900 ml Constitutional: alert, oriented, well developed Psych: no complaints, nl mood/affect Head: normocephalic, atraumatic Eyes: nl conjunctiva, EOMI, nl lids, nl sclera, PERRL ENMT: nl external ears & nose, nl lips & teeth, nl nasal mucosa & septum Neck: supple, non-tender Respiratory: clear to auscultation, normal air movement Cardiovascular: regular rate and rhythm, nl pulses Gastrointestinal: soft, nl liver, spleen, non-tender Musculoskeletal: nl extremities to inspection, nl gait and stance Extremities: normal pulses Neurological: [employer] REPRESENT[employer]IVES II-XII intact, nl mental status, nl speech, nl strength Skin: nl turgor; No rash or lesions Lymph: nl lymph nodes Results Results 24hrs Laboratory Tests Test 01/24/19 17:18 01/24/19 20:32 01/25/19 07:49 01/25/19 12:10 Bedside Glucose 171 124 129 181 Medications Medication Current Medications IV Flush (NS 3 ml) 3 ml PER PROTOCOL IV ; Start 01/21/19 at 18:00 Acetaminophen/ Hydrocodone Bitart ([place] (5/325)) 1 tab Q6H PRN PO .MOD PAIN 4- 6; Start 01/21/19 at 18:00 Heparin Sodium (Porcine) (Heparin (5000 Units/1ml)) 5,000 unit Q12 SC Last administered on 01/25/19at 08:22; Admin Dose 5,000 UNIT; Start 01/21/19 at 21:00 Clonidine (Catapres) 0.2 mg TID PRN PO SBP ABOVE 180..... Last administered on 01/22/19at 16:21; Admin Dose 0.2 MG; Start 01/21/19 at 19:30 Diagnostic Test (Pha) (Accu-Chek) 1 ea AC MEALS AND BEDTIME XX Last administered on 01/23/19at 17:35; Admin Dose 1 EA; Start 01/21/19 at 21:00 Insulin Glargine (Lantus) 11 units DAILY@2000 SC Last administered on 01/24/19at 20:38; Admin Dose 11 UNITS; Start 01/21/19 at 20:00 Insulin Aspart (Novolog Insulin Pen) 4 unit WITH MEALS SC Last administered on 01/25/19 12:12; Admin Dose 4 UNIT; Start 01/22/19 at 07:35 Insulin Aspart (Novolog Insulin Pen) NOVOLOG *MILD* ALGORITHM WITH MEALS BEDTIME SC Last administered on 01/25/19 12:13; Admin Dose 2 UNIT; Start 01/21/19 at 21:00 Miscellaneous Information 1 ea NOTE XX ; Start 01/21/19 at 20:30 Glucose (Glutose) 15 gm Q15M PRN PO DECREASED GLUCOSE; Start 01/21/19 at 20:30 Glucose (Glutose) 22.5 gm Q15M PRN PO DECREASED GLUCOSE; Start 01/21/19 at 20:30 Dextrose (D50w Syringe) 25 ml Q15M PRN IV DECREASED GLUCOSE; Start 01/21/19 at 20:30 Dextrose (D50w Syringe) 50 ml Q15M PRN IV DECREASED GLUCOSE; Start 01/21/19 at 20:30 Glucagon (Glucagen) 1 mg Q15M PRN IM DECREASED GLUCOSE; Start 01/21/19 at 20:30 Glucose (Glutose) 15 gm Q15M PRN BUCCAL DECREASED GLUCOSE; Start 01/21/19 at 20:30 Hydralazine HCl (Apresoline) 10 mg Q4H PRN IV ELEVATED BLOOD PRESSURE Last administered on 01/23/19at 17:21; Admin Dose 10 MG; Start 01/22/19 at 06:30 Doxycycline Hyclate (Vibramycin) 100 mg BID PO Last administered on 01/25/19at 08:23; Admin Dose 100 MG; Start 01/22/19 at 21:00 Furosemide (Lasix) 40 mg DAILY IV Last administered on 01/25/19at 08:23; Admin Dose 40 MG; Start 01/22/19 at 12:00 Cefpodoxime Proxetil (Vantin) 200 mg BID PO Last administered on 01/25/19at 09:20; Admin Dose 200 MG; Start 01/25/19 at 09:00 GLADYS LUNA MD Jan 25, 2019 15:30
--- NOTE | 2019-01-25 18:38 | CONS ---
Consult Date/Type/Reason Admit Date/Time January 21, 2019 at 16:24 Initial Consult Date 01/22/19 Type of Consultation: Pulm/CCM Date/Time of Note DATE: 01/25/19 TIME: 18:29 Subjective Feels much better. Denies dyspnea. Does admit to mold exposure in his home. Objective Vitals Vital Signs Date Temp Pulse Resp B/P (MAP) Pulse Ox O2 O2 Flow FiO2 Time Delivery Rate 01/25/19 2.0 15:57 01/25/19 164/95 09:00 (118) 01/25/19 98.2 113 16 95 07:47 01/24/19 Room Air 17:59 Intake and Output 01/24/19 01/24/19 01/25/19 1515:00 23:00 07:00 IntakeIntake Total 50 ml 1050 ml 900 ml BalanceBalance 50 ml 1050 ml 900 ml Exam HEENT: Neck supple; no JVD; no LAD CVS: RRR, S1 and S2 CHEST: Clear ABD: Soft, NT, + BS EXT: No c/c/e Results/Medications Result Diagram: 01/24/19 0557 01/24/19 0557 Results 24 hrs Laboratory Tests Test 01/24/19 20:32 01/25/19 07:49 01/25/19 12:10 01/25/19 17:20 Bedside Glucose 124 129 181 107 Home Meds Reported Medications Clonidine Hcl* (Clonidine Hcl*) 0.2 Mg Tablet, 0.2 MG PO TID PRN for ELEVATED BLOOD PRESSURE, TAB 01/21/19 Discontinued Reported Medications Metformin Hcl* (Metformin Hcl*) 1,000 Mg Tablet, 1000 MG PO WITH BREAKFAST DINNE, #60 TAB 01/21/19 Medications Current Medications IV Flush (NS 3 ml) 3 ml PER PROTOCOL IV ; Start 01/21/19 at 18:00 Acetaminophen/ Hydrocodone Bitart ([place] (5/325)) 1 tab Q6H PRN PO .MOD PAIN 4- 6; Start 01/21/19 at 18:00 Heparin Sodium (Porcine) (Heparin (5000 Units/1ml)) 5,000 unit Q12 SC Last administered on 01/25/19at 08:22; Admin Dose 5,000 UNIT; Start 01/21/19 at 21:00 Clonidine (Catapres) 0.2 mg TID PRN PO SBP ABOVE 180..... Last administered on 01/22/19 16:21; Admin Dose 0.2 MG; Start 01/21/19 at 19:30 Diagnostic Test (Pha) (Accu-Chek) 1 ea AC MEALS AND BEDTIME XX Last administered on 01/23/19 17:35; Admin Dose 1 EA; Start 01/21/19 at 21:00 Insulin Glargine (Lantus) 11 units DAILY@2000 SC Last administered on 01/24/19at 20:38; Admin Dose 11 UNITS; Start 01/21/19 at 20:00 Insulin Aspart (Novolog Insulin Pen) 4 unit WITH MEALS SC Last administered on 01/25/19 17:21; Admin Dose 4 UNIT; Start 01/22/19 at 07:35 Insulin Aspart (Novolog Insulin Pen) NOVOLOG *MILD* ALGORITHM WITH MEALS BEDTIME SC Last administered on 01/25/19 12:13; Admin Dose 2 UNIT; Start 01/21/19 at 21:00 Miscellaneous Information 1 ea NOTE XX ; Start 01/21/19 at 20:30 Glucose (Glutose) 15 gm Q15M PRN PO DECREASED GLUCOSE; Start 01/21/19 at 20:30 Glucose (Glutose) 22.5 gm Q15M PRN PO DECREASED GLUCOSE; Start 01/21/19 at 20:30 Dextrose (D50w Syringe) 25 ml Q15M PRN IV DECREASED GLUCOSE; Start 01/21/19 at 20:30 Dextrose (D50w Syringe) 50 ml Q15M PRN IV DECREASED GLUCOSE; Start 01/21/19 at 20:30 Glucagon (Glucagen) 1 mg Q15M PRN IM DECREASED GLUCOSE; Start 01/21/19 at 20:30 Glucose (Glutose) 15 gm Q15M PRN BUCCAL DECREASED GLUCOSE; Start 01/21/19 at 20:30 Hydralazine HCl (Apresoline) 10 mg Q4H PRN IV ELEVATED BLOOD PRESSURE Last administered on 01/23/19at 17:21; Admin Dose 10 MG; Start 01/22/19 at 06:30 Doxycycline Hyclate (Vibramycin) 100 mg BID PO Last administered on 01/25/19at 08:23; Admin Dose 100 MG; Start 01/22/19 at 21:00 Cefpodoxime Proxetil (Vantin) 200 mg BID PO Last administered on 01/25/19at 09:20; Admin Dose 200 MG; Start 01/25/19 at 09:00 Furosemide (Lasix) 20 mg DAILY PO ; Start 01/26/19 at 09:00 Assessment/Plan Assessment/Plan (Daily) IMP: 1. Diffuse Parenchymal Lung Disease--with CT showing ill-defined GGO and perilymphatic micronodules as well as interlobular septal thickening. Findings not consistent most infectious etiologies, except miliary TB, which it is not typical for. Considerations would include lymphangitic carcinomatosis and less likely sarcoidosis. Findings also not consistent with HP. With that said, the history of mold exposure in his home and the significant improvement of symptoms--while away from home--do raise concern for subacute HP. However, this diagnosis would not explain the lymphocytic-predominant exudative pleural effusion 2. Lymphocytic predominant exudative effusion--concerning for malignancy vs.TB RECS: 1. F/U pleural fluid cytology 2. I spoke with Mr. Dai at length. Given above findings, I suggested a repeat chest CT without contrast. If there is notable improvement, then I would consider holding off on bronchoscopy with TBB, and would follow-up as an outpt, and would ensure that his home is professionally cleaned of the mold prior to his return. GILLIAN CARMONA MD Jan 25, 2019 18:38
[2019-01-25 20:47] VITALS: BP 176/92; PULSE 104; RESP 16
[2019-01-25] MEDS: INSULIN GLARGINE [LANTus] (100 UNITS/ML) SYG SC SCH (20:51)
[2019-01-25] MEDS: hydrALAzine 20 MG INJ IV PRN (21:23)
[2019-01-25 22:31] VITALS: BP 148/86; PULSE 98
[2019-01-26 02:09] VITALS: BP 146/87; PULSE 83; RESP 16
[2019-01-26] MEDS: ACCU-CHEK XX SCH ×2 (07:30→11:30)
[2019-01-26 08:00] VITALS: BP 144/89; PULSE 96; RESP 17
[2019-01-26] MEDS: INSULIN ASPART [NOVOLOG] 3 ML PEN SC SCH ×4 (08:00→12:03)
[2019-01-26] MEDS: DOXYCYCLINE 100 MG TAB PO SCH (08:13)
[2019-01-26] MEDS: CEFPODOXIME 200 MG TAB PO SCH (08:13)
[2019-01-26] MEDS: HEPARIN 5,000 UNIT/1 ML VIAL SC SCH (08:14)
--- NOTE | 2019-01-26 08:14 | CONS ---
Assessment/Plan Assessment/Plan Hospital Course (Demo Recall) 1) alveolar/interstitial pneumonitis CT chest does not show nodules or cavities, this is not a typical pattern for [place] fever continue with cefepime, change vanco/azithro to doxycycline to cover MRSA and atypicals procalcitonin is pending, repeat in a.m. check ESR, AMBREEN, ANCA get viral respiratory panel of nares get nasal for MRSA check quant TB gold in a.m. if pt does not improve in the next few days and lab tests are not revelatory then he will likely need bronch with lung bx 01/23 - initial procalcitonin was neg, repeat is pending pt has pericardial/pleural effusions in combo with his interstitial pneumonitis is indeed concerning for an auto-immune process ESR, AMBREEN, ANCA, anti-gbm are pending continue with doxy/cefepime at present 01/24 - pleural fluid looked to be transudative, but have order serum LDH to verify, lymphocytic predominant procalcitonin is neg x 2 ESR is mild-moderately elevated continue with doxy/cefepime, although unlikely he has typical pneumonia viral PCR has not been collected yet 01/25 - AMBREEN and ANCA were neg quant TB gold and legionella were neg d/c cefepime and start vantin 200mg BID and continue for another 3 days continue doxycycline for another 10 days CXR is improved and symptoms are improved which makes TB or CA less likely ok to d/c from ID perspective but pt should get repeat chest CT in 4-6 weeks 01/26 - CT chest shows much improvement continue vantin for another 2 days and continue doxycycline for another 9 days cocci titers and respiratory viral panel are pending, will follow up on these 2) DM pt states these have been good and his HgbA1C is around 6 3) HTN Consultation Date/Type/Reason Admit Date/Time January 21, 2019 at 16:24 Initial Consult Date 01/22/19 Type of Consult ID Date/Time of Note DATE: 01/26/19 TIME: 08:12 24 HR Interval Summary Free Text/Dictation pt is doing well no cough, SOB Exam/Review of Systems Exam Vitals Vital Signs Date Temp Pulse Resp B/P (MAP) Pulse Ox O2 O2 Flow FiO2 Time Delivery Rate 01/26/19 98.0 83 16 146/87 94 02:09 (106) 01/25/19 2.0 15:57 6/1/19 Room Air 17:59 Intake and Output 01/25/19 01/25/19 01/26/19 1515:00 23:00 07:00 IntakeIntake Total 1650 ml 900 ml BalanceBalance 1650 ml 900 ml Constitutional: alert, oriented Eyes: nl sclera ENMT: mucosa pink and moist Respiratory: clear to auscultation Cardiovascular: regular rate and rhythm Gastrointestinal: soft, non-tender Results Result Diagram: 01/24/19 0557 01/24/19 0557 Results 24hrs Laboratory Tests Test 01/25/19 12:10 01/25/19 17:20 01/25/19 20:45 01/26/19 02:35 Bedside Glucose 181 107 193 124 Medications Medication Current Medications IV Flush (NS 3 ml) 3 ml PER PROTOCOL IV ; Start 01/21/19 at 18:00 Acetaminophen/ Hydrocodone Bitart ([place] (5/325)) 1 tab Q6H PRN PO .MOD PAIN 4- 6; Start 01/21/19 at 18:00 Heparin Sodium (Porcine) (Heparin (5000 Units/1ml)) 5,000 unit Q12 SC Last administered on 01/25/19 20:51; Admin Dose 5,000 UNIT; Start 01/21/19 at 21:00 Clonidine (Catapres) 0.2 mg TID PRN PO SBP ABOVE 180..... Last administered on 01/22/19 16:21; Admin Dose 0.2 MG; Start 01/21/19 at 19:30 Diagnostic Test (Pha) (Accu-Chek) 1 ea AC MEALS AND BEDTIME XX Last administered on 01/25/19 20:52; Admin Dose 1 EA; Start 01/21/19 at 21:00 Insulin Glargine (Lantus) 11 units DAILY@2000 SC Last administered on 01/25/19 20:51; Admin Dose 11 UNITS; Start 01/21/19 at 20:00 Insulin Aspart (Novolog Insulin Pen) 4 unit WITH MEALS SC Last administered on 01/25/19 17:21; Admin Dose 4 UNIT; Start 01/22/19 at 07:35 Insulin Aspart (Novolog Insulin Pen) NOVOLOG *MILD* ALGORITHM WITH MEALS BEDTIME SC Last administered on 01/25/19 20:50; Admin Dose 1 UNIT; Start 01/21/19 at 21:00 Miscellaneous Information 1 ea NOTE XX ; Start 01/21/19 at 20:30 Glucose (Glutose) 15 gm Q15M PRN PO DECREASED GLUCOSE; Start 01/21/19 at 20:30 Glucose (Glutose) 22.5 gm Q15M PRN PO DECREASED GLUCOSE; Start 01/21/19 at 20:30 Dextrose (D50w Syringe) 25 ml Q15M PRN IV DECREASED GLUCOSE; Start 01/21/19 at 20:30 Dextrose (D50w Syringe) 50 ml Q15M PRN IV DECREASED GLUCOSE; Start 01/21/19 at 20:30 Glucagon (Glucagen) 1 mg Q15M PRN IM DECREASED GLUCOSE; Start 01/21/19 at 20:30 Glucose (Glutose) 15 gm Q15M PRN BUCCAL DECREASED GLUCOSE; Start 01/21/19 at 20:30 Hydralazine HCl (Apresoline) 10 mg Q4H PRN IV ELEVATED BLOOD PRESSURE Last administered on 01/25/19at 21:23; Admin Dose 10 MG; Start 01/22/19 at 06:30 Doxycycline Hyclate (Vibramycin) 100 mg BID PO Last administered on 01/25/19at 20:51; Admin Dose 100 MG; Start 01/22/19 at 21:00 Cefpodoxime Proxetil (Vantin) 200 mg BID PO Last administered on 01/25/19at 20:51; Admin Dose 200 MG; Start 01/25/19 at 09:00 Furosemide (Lasix) 20 mg DAILY PO ; Start 01/26/19 at 09:00 FRANCISCO NYE MD Jan 26, 2019 08:14
[2019-01-26] MEDS ORDERED: FUROSEMIDE 20 MG TAB PO SCH (09:00)
[2019-01-26] MEDS ORDERED: AMLO5TAB4 PO (12:34)
[2019-01-26] MEDS ORDERED: LAS20 PO (12:34)
--- NOTE | 2019-01-26 12:38 | PDOCDIS ---
Discharge Instructions DIAGNOSIS Discharge Diagnosis Hypersensitivity pneumonitis Diastolic CHF CONDITION [id number] Patient Condition: [id number] Stable FOLLOW UP/APPOINTMENTS Follow-up Plan Take your medications as prescribed Check in with your doctor in the next couple weeks to monitor your blood pressure and electrolytes If you feel like you are dehydrated, you can stop taking lasix Avoid any exposure to mold or anything in the air that you feels exacerbates your lung/breathing problem GLADYS LUNA MD Jan 26, 2019 12:38
--- NOTE | 2019-01-26 13:02 | CONS ---
Consult Date/Type/Reason Admit Date/Time January 21, 2019 at 16:24 Initial Consult Date 01/22/19 Type of Consult Pulmonary Date/Time of Note DATE: 01/26/19 TIME: 13:00 Subjective Patient stable this morning less shortness of breath. No respiratory distress. CT shows improved lung parenchyma. Objective Vital Signs Date Temp Pulse Resp B/P (MAP) Pulse Ox O2 O2 Flow FiO2 Time Delivery Rate 01/26/19 98.3 96 17 144/89 94 Room Air 08:00 (107) 01/25/19 2.0 15:57 Intake and Output 01/25/19 01/25/19 01/26/19 1515:00 23:00 07:00 IntakeIntake Total 1650 ml 900 ml BalanceBalance 1650 ml 900 ml Exam GENERAL: Well-nourished well-developed gentleman comfortable at rest VITAL SIGNS: per chart NECK: Supple. No JVD or lymphadenopathy. CARDIAC EXAM: S1, S2. No added sounds or murmurs. CHEST: clear bilaterally, No added sounds, rales or wheezes ABDOMEN: Soft, nontender. No guarding or rebound. EXTREMITIES: No cyanosis, clubbing or edema. NEUROLOGIC: Generalized weakness. No focal deficits. Results/Medications Result Diagram: 01/24/19 0557 01/24/19 0557 Results 24 hrs Laboratory Tests Test 01/25/19 17:20 01/25/19 20:45 01/26/19 02:35 01/26/19 08:09 Bedside Glucose 107 193 124 127 Test 01/26/19 12:00 Bedside Glucose 136 Medications Current Medications IV Flush (NS 3 ml) 3 ml PER PROTOCOL IV ; Start 01/21/19 at 18:00 Acetaminophen/ Hydrocodone Bitart ([place] (5/325)) 1 tab Q6H PRN PO .MOD PAIN 4- 6; Start 01/21/19 at 18:00 Heparin Sodium (Porcine) (Heparin (5000 Units/1ml)) 5,000 unit Q12 SC Last administered on 01/26/19at 08:14; Admin Dose 5,000 UNIT; Start 01/21/19 at 21:00 Clonidine (Catapres) 0.2 mg TID PRN PO SBP ABOVE 180..... Last administered on 01/22/19at 16:21; Admin Dose 0.2 MG; Start 01/21/19 at 19:30 Diagnostic Test (Pha) (Accu-Chek) 1 ea AC MEALS AND BEDTIME XX Last administered on 01/25/19at 20:52; Admin Dose 1 EA; Start 01/21/19 at 21:00 Insulin Glargine (Lantus) 11 units DAILY@2000 SC Last administered on 01/25/19 20:51; Admin Dose 11 UNITS; Start 01/21/19 at 20:00 Insulin Aspart (Novolog Insulin Pen) 4 unit WITH MEALS SC Last administered on 01/26/19 12:03; Admin Dose 4 UNIT; Start 01/22/19 at 07:35 Insulin Aspart (Novolog Insulin Pen) NOVOLOG *MILD* ALGORITHM WITH MEALS BEDTIME SC Last administered on 01/25/19 20:50; Admin Dose 1 UNIT; Start 01/21/19 at 21:00 Miscellaneous Information 1 ea NOTE XX ; Start 01/21/19 at 20:30 Glucose (Glutose) 15 gm Q15M PRN PO DECREASED GLUCOSE; Start 01/21/19 at 20:30 Glucose (Glutose) 22.5 gm Q15M PRN PO DECREASED GLUCOSE; Start 01/21/19 at 20:30 Dextrose (D50w Syringe) 25 ml Q15M PRN IV DECREASED GLUCOSE; Start 01/21/19 at 20:30 Dextrose (D50w Syringe) 50 ml Q15M PRN IV DECREASED GLUCOSE; Start 01/21/19 at 20:30 Glucagon (Glucagen) 1 mg Q15M PRN IM DECREASED GLUCOSE; Start 01/21/19 at 20:30 Glucose (Glutose) 15 gm Q15M PRN BUCCAL DECREASED GLUCOSE; Start 01/21/19 at 20:30 Hydralazine HCl (Apresoline) 10 mg Q4H PRN IV ELEVATED BLOOD PRESSURE Last administered on 01/25/19at 21:23; Admin Dose 10 MG; Start 01/22/19 at 06:30 Doxycycline Hyclate (Vibramycin) 100 mg BID PO Last administered on 01/26/19at 08:13; Admin Dose 100 MG; Start 01/22/19 at 21:00 Cefpodoxime Proxetil (Vantin) 200 mg BID PO Last administered on 01/26/19at 08:13; Admin Dose 200 MG; Start 6/2/19 at 09:00 Furosemide (Lasix) 20 mg DAILY PO Last administered on 01/26/19at 08:13; Admin Dose 20 MG; Start 01/26/19 at 09:00 Assessment/Plan Hospital Course (Demo Recall) Assessment 1. Resolving hypoxemic respiratory failure possible hypersensitivity pneumoni tis given CT changes. 2. Extensive ID and autoimmune work-up in place. Plan 1. Patient clinically improving can likely follow-up with pulmonary at all of the hospital to assess extensive labs which are currently pending. 2. Possibility of fungal lung disease or hypersensitivity pneumonitis secondary to fungal exposure. Would limit exposure to triggers. ELADIO JEAN MD, [facility] Jan 26, 2019 13:02
[2019-01-26 14:00] VITALS: BP 154/79; PULSE 99; RESP 18
--- NOTE | 2019-01-26 14:09 | DS ---
Date/Time of Note Date/Time of Note DATE: 01/26/19 TIME: 14:07 Discharge Summary Admission/Discharge Info Admit Date/Time January 21, 2019 at 16:24 Discharge Date/Time Discharge Diagnosis Hypersensitivity pneumonitis Diastolic CHF Patient Condition: Stable Hx of Present Illness This is a 63-year-old male with a history of diabetes and hypertension who presents with cough and shortness of breath and fever Patient has had respiratory symptoms for about a month and a half. He has had bothersome dry cough as well as shortness of breath. He has had daily fevers to 101 measured at home. She is primary care doctor has given him a course of amoxicillin which has not helped he also gave him an intramuscular injection which sounds like it was Rocephin. Also this did not improve his symptoms. His fevers and shortness of breath symptoms have worsened over the past few days so he sought care in the emergency room here today. He also reports frequent night sweats. No weight loss here found to be febrile mildly hypoxic with diffuse interstitial infiltrates on chest x-ray He appears well and comfortable rest He denies any major recent travel. [place] left the [place] area about [place] ago. 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 His was sick briefly with an upper respiratory infection a month ago but nothing similar to what he has now. No other sick contacts Hospital Course This is a 63-year-old male with a history of diabetes and hypertension with who presents with 6 weeks of resolving pneumonia. Found to have fever mild hypoxia and diffuse interstitial infiltrates on chest CT He was treated wt broad spectrum antibiotics. CT was suggestive of possible pulmonary edema so lasix was given His respiratory status improved markedly There was concern for connective tissue disorder based off of imaging, serologies were negative for this Pulmonary consult diagonsed hypersenstivity pneumonitis. Repeat CT confirmed this and showed resolution. He was counseled to avoid environmental exposures. TTE suggested diasotlic dysfunction. He was prescribed a diuretic and amlodipine at discharge. He will follow up with pulmonary doctors as [facility] if his symptoms recur Home Meds Active Scripts Amlodipine Besylate* (Norvasc*) 5 Mg Tablet, 5 MG PO DAILY for 90 Days, #90 TAB 4 Refills Prov:GLADYS LUNA MD 01/26/19 Furosemide (Lasix) 20 Mg Tab, 20 MG PO DAILY for 30 Days, #30 TAB 1 Refill Prov:GLADYS LUNA MD 01/26/19 Discontinued Reported Medications Clonidine Hcl* (Clonidine Hcl*) 0.2 Mg Tablet, 0.2 MG PO TID PRN for ELEVATED BLOOD PRESSURE, TAB 01/21/19 Metformin Hcl* (Metformin Hcl*) 1,000 Mg Tablet, 1000 MG PO WITH BREAKFAST DINNE, #60 TAB 01/21/19 Follow-up Plan Take your medications as prescribed Check in with your doctor in the next couple weeks to monitor your blood pressure and electrolytes If you feel like you are dehydrated, you can stop taking lasix Avoid any exposure to mold or anything in the air that you feels exacerbates your lung/breathing problem Primary Care Provider Arleen Fu MD Pending Labs Laboratory Tests Test 01/25/19 17:20 01/25/19 20:45 01/26/19 02:35 01/26/19 08:09 Bedside 107 193 124 127 Glucose mg/dL (70-220) mg/dL (70-220) mg/dL (70-220) mg/dL (70-220) Test 01/26/19 12:00 Bedside 136 Glucose mg/dL (70-220) GLADYS LUNA MD Jan 26, 2019 14:09
== END 2019-01-26 16:41 | disposition home or self-care (01) | DRG 196 ==
LOC: E/R 11:30 → PP2 16:24 → SUATTDRO 17:40
PROVIDERS: ADMIT Internal Medicine; ATTEND Internal Medicine
PROC: 0W993ZZ Drainage of Right Pleural Cavity, Percutaneous Approach (ICD-10-PCS; principal; 2019-01-23)
DX: J67.9 Hypersensitivity pneumonitis due to unspecified organic dust (principal); J96.91 Respiratory failure, unspecified with hypoxia; I13.0 Hypertensive heart and chronic kidney disease with heart failure and stage 1 through stage 4 chronic kidney disease, or unspecified chronic kidney disease; I50.30 Unspecified diastolic (congestive) heart failure; J90 Pleural effusion, not elsewhere classified; E11.22 Type 2 diabetes mellitus with diabetic chronic kidney disease; N18.2 Chronic kidney disease, stage 2 (mild)
CPT/HCPCS: 36415; 71045; 71250; 76942; 80048; 80053; 81003; 82945; 82962; 83036; 83605; 83615; 84145; 84157; 84484; 85025; 85610; 85651; 85730; 86021; 86038; 86480; 86635; 86703; 86738; 87070; 87081; 87086; 87102; 87116; 87275; 87276; 87279; 87280; 87449; 88104; 88305; 89051; 93005; 93306; 94664; 96365; 96366; 96368; J0360; J0692; J1644; J1815; J1940; J3370; J7030; J7050